=== PATIENT | female | born 1925 | race Caucasian/White ===

== ENCOUNTER 2016-09-03 02:30 | Inpatient (IN) | payer OTHER ==
[2016-09-03 02:43] VITALS: BMI 20.7
[2016-09-03] MEDS ORDERED: ALBUTEROL SO4 2.5/IPRATROPIUM 0.5 INH SOL 3 ML VIAL.NEB. NEB ONE (02:47)
[2016-09-03] MEDS ORDERED: methylPREDNISolone NA SUCC 125 MG/2 ML VIAL ONE (02:47)
--- NOTE | 2016-09-03 03:01 | PDOC ---
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 The patient reports slight shortness of breath with intermittent productive cough. Denies sick contact. Denies chest pain or palpitations. Denies fever, chills, or diaphoresis. Denies nausea, vomiting, diarrhea. Denies any other symptoms. 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 ) CVA: No COPD: Yes CHF: No Dementia: No Diabetes: No GI Disorders: No Disorders: No HTN: No Hypercholesterolemia: No Liver Disease: No Suicide Attempt (Hx): No Seizures: No Thyroid Disease: No - Surgical History Abdominal Surgery: Yes (hernia repair) Appendectomy: No Cardiac Surgery: No Cholecystectomy: No Lung Surgery: No Neurologic Surgery: No Orthopedic Surgery: Yes (left hip sx x5, left arm sx x1, tonsils as child) - Immunization History Immunization Up to Date: Yes - Psycho/Social/Smoking Cessation Hx Anxiety: No Suicidal Ideation: No Smoking Status: No Smoking History: Never smoked Have you smoked in the past 12 months: No Number of Cigarettes Smoked Daily: 0 Hx Alcohol Use: No Drug/Substance Use Hx: No Substance Use Type: None Hx Substance Use Treatment: No <Nigel Smart - Last Filed: 09/05/16 19:29> - Past Medical History Allergies/Adverse Reactions: Allergies Allergy/AdvReac Type Severity Reaction Status Date / Time amoxicillin [Amoxicillin] Allergy Mild Rash Verified 09/03/16 02:43 mold Allergy Verified 09/03/16 02:43 MSG AdvReac Intermediate Uncoded 09/03/16 02:43 Home Medications: Ambulatory Orders Albuterol Sulfate Inhaler - [Ventolin HFA Inhaler -] 2 inh PO Q4H 12/02/15 Aspirin [ASA -] 81 mg PO DAILY 12/02/15 Bimatoprost [Lumigan] 1 drop OD HS 12/02/15 Folic Acid 1 mg PO DAILY 12/02/15 Montelukast Na [Singulair -] 10 mg PO HS 12/02/15 Tiotropium [place] [Spiriva] 1 inh IH DAILY 12/02/15 Prednisone [Deltasone -] 10 mg PO DAILY 07/16/16 Calcium Carbonate [Calcium] 1,000 mg PO DAILY 09/03/16 Cholecalciferol (Vitamin D3) [Vitamin D3 -] 1,000 unit PO DAILY 09/03/16 Mometasone Furoate 2 sprays NS DAILY 09/03/16 Review of Systems - Review of Systems Able to Perform ROS?: Yes Comments:: 09/03/16 03:31 CONSTITUTIONAL: Absent: fever, no chills, no fatigue EYES: Absent: visual changes ENT: Absent: ear pain, no sore throat CARDIOVASCULAR: Absent: chest pain, no palpitations RESPIRATORY: + cough, SOB GI: Absent: abdominal pain, no nausea, no vomiting, no constipation, no diarrhea GENITOURINARY: Absent: dysuria, no frequency, no hematuria MUSKULOSKELETAL: Absent: back pain, no arthralgia, no myalgia SKIN: Absent: rash NEURO: Absent: headache All Other Systems: Reviewed and Negative <Riddhi Esparza - Last Filed: 09/03/16 04:11> *Physical Exam - Vital Signs Last Vital Signs Temp Pulse Resp BP Pulse Ox 97.9 F 90 20 171/71 99 09/03/16 02:40 09/03/16 02:40 09/03/16 02:40 09/03/16 02:40 09/03/16 02:40 - Physical Exam Comments: 09/03/16 03:31 GENERAL: Well-appearing, well-nourished. No apparent distress. HEENT: Normocephalic, atraumatic. PERRL, EOM intact. CARDIOVASCULAR: Normal S1, S2. Regular rate and rhythm. PULMONARY: + scattered wheezing throughout both lung sullivan, no conversation dyspnea. ABDOMEN: Soft, non-distended, non-tender. EXTREMITIES: Normal ROM in all four extremities. No gross deformities. SKIN: Warm, dry. No rash NEUROLOGICAL: No focal neurological deficits. <Riddhi Esparza - Last Filed: 09/03/16 04:11> - Vital Signs Last Vital Signs Temp Pulse Resp BP Pulse Ox 97.9 F 90 20 171/71 99 09/03/16 02:40 09/03/16 02:40 09/03/16 02:40 09/03/16 02:40 09/03/16 02:40 <Nigel Smart - Last Filed: 09/05/16 19:29> Heart Score/ECG Review #1 09/03/16 04:11 Reviewed and Interpreted by Dr. Smart: Impression: Sinus rhythm with marked sinus arrhythmia Possible left atrial enlargement Left axis deviation Left ventricular hypertrophy with QRS widening and repolarization abnormality Inferior infarct, age undetermined Vent rate 80 bpm SD interval 182 ms QRS duration 162 ms <Riddhi Esparza - Last Filed: 09/03/16 04:11> ED Treatment Course - LABORATORY CBC & Chemistry Diagram: 09/04/16 05:35 09/04/16 05:35 <Nigel Smart - Last Filed: 09/05/16 19:29> Medical Decision Making - Medical Decision Making 09/05/16 19:29 Dr. Smart: The scribe's documentation has been prepared under my direction and personally reviewed by me in its entirery. I confirm that the note above accurately reflects all work, treatment, procedures, and medical decision making performed by me. <Nigel Smart - Last Filed: 09/05/16 19:29> *DC/Admit/Observation/Transfer - Attestations Scribe Attestion: 09/03/16 03:31 Documentation prepared by Riddhi Esparza, acting as associate medical director for Nigel Smart MD <Riddhi Esparza - Last Filed: 09/03/16 04:11> <Nigel Smart - Last Filed: 09/05/16 19:29> Diagnosis at time of Disposition: Acute respiratory distress COPD (chronic obstructive pulmonary disease) Qualifiers: COPD type: COPD with acute exacerbation Qualified Code(s): J44.1 - Chronic obstructive pulmonary disease with (acute) exacerbation - Discharge Dispostion Condition at time of disposition: Stable - Referrals
[2016-09-03 06:11] LABS: BASOPHIL 0.4 % (0-2.0); EOSINOPHIL 0.1 % (0-4.5); MCH 28.9 pg (25.7-33.7); MEAN CELL VOLUME 90.3 fl (80-96); MEAN PLT VOLUME 9.8 fl (7.5-11.1); NEUTROPHILS 96.3 % (42.8-82.8); PLATELET COUNT 150 K/MM3 (134-434); RDW 14.1 % (11.6-15.6); WHITE BLOOD COUNT 6.7 K/mm3 (4.0-10.0)
[2016-09-03 06:26] LABS: INR 1.12 (0.82-1.09); PROTHROMBIN TIME (PATIENT) 12.3 SEC (9.98-11.88)
[2016-09-03 06:39] LABS: ALBUMIN 3.3 g/dl (3.4-5.0); BILIRUBIN,TOTAL 0.3 mg/dL (0.2-1.0); CALCIUM 8.7 mg/dL (8.5-10.1); CREATININE 0.9 mg/dL (0.55-1.02); TOT PROT 5.6 g/dl (6.4-8.2)
[2016-09-03 06:41] LABS: TROPONIN I 0.05 ng/ml (0.00-0.05)
[2016-09-03] MEDS ORDERED: LEVOFLOXACIN 500 MG IVPB 100 ML IVPB ONE ×2 (07:30→07:42)
--- NOTE | 2016-09-03 07:32 | PDOC ---
*Physical Exam - Vital Signs Last Vital Signs Temp Pulse Resp BP Pulse Ox 97.9 F 94 H 16 133/76 96 09/03/16 02:40 09/03/16 06:26 09/03/16 06:26 09/03/16 06:26 09/03/16 06:26 <Wilfrid Khan - Last Filed: 09/03/16 09:11> - Vital Signs Last Vital Signs Temp Pulse Resp BP Pulse Ox 97.9 F 94 H 16 133/76 96 09/03/16 02:40 09/03/16 06:26 09/03/16 06:26 09/03/16 06:26 09/03/16 06:26 <Shayla Doherty - Last Filed: 09/03/16 09:16> ED Treatment Course - LABORATORY CBC & Chemistry Diagram: 09/03/16 05:54 09/03/16 05:54 - ADDITIONAL ORDERS Additional order review: Laboratory Results 09/03/16 09/03/16 05:54 05:54 INR 1.12 Sodium 144 Potassium 3.5 Chloride 106 Carbon Dioxide 28 Anion Gap 10 BUN 19 H Creatinine 0.9 Creat Clearance w eGFR 58.95 Random Glucose 164 H D Calcium 8.7 Total Bilirubin 0.3 D AST 17 D ALT 15 Alkaline Phosphatase 155 H D Creatine Kinase 40 Troponin I 0.05 Total Protein 5.6 L Albumin 3.3 L D 09/03/16 05:54 RBC 4.43 MCV 90.3 MCHC 32.0 RDW 14.1 MPV 9.8 Neutrophils % 96.3 H Lymphocytes % 1.1 L D Monocytes % 2.1 L Eosinophils % 0.1 D Basophils % 0.4 <Wilfrid Khan - Last Filed: 09/03/16 09:11> - LABORATORY CBC & Chemistry Diagram: 09/03/16 05:54 09/03/16 05:54 - ADDITIONAL ORDERS Additional order review: Laboratory Results 09/03/16 09/03/16 05:54 05:54 INR 1.12 Sodium 144 Potassium 3.5 Chloride 106 Carbon Dioxide 28 Anion Gap 10 BUN 19 H Creatinine 0.9 Creat Clearance w eGFR 58.95 Random Glucose 164 H D Calcium 8.7 Total Bilirubin 0.3 D AST 17 D ALT 15 Alkaline Phosphatase 155 H D Creatine Kinase 40 Troponin I 0.05 Total Protein 5.6 L Albumin 3.3 L D 09/03/16 05:54 RBC 4.43 MCV 90.3 MCHC 32.0 RDW 14.1 MPV 9.8 Neutrophils % 96.3 H Lymphocytes % 1.1 L D Monocytes % 2.1 L Eosinophils % 0.1 D Basophils % 0.4 <Shayla Doherty - Last Filed: 09/03/16 09:16> Medical Decision Making - Medical Decision Making 09/03/16 07:30 Received signout on this 89-year-old female with asthma/COPD exacerbation who presented with respiratory distress, improved significantly after nebulizers, workup revealed no leukocytosis but left shift, negative troponin, plan was to admit to Dr. Cobb for monitoring of respiratory status. On my review, patient seated comfortably in stretcher, her vital signs are within normal limits, slightly tachypneic. She speaking full sentences, does have coarse breath sounds, right worse than left. Wheezing minimal with good air movement. On my review of the chest x-ray, there appeared to be new infiltrates, particularly on the right, when compared to 2 months ago. Will obtain blood cultures, treat with antibiotics, and proceed with admission. Dr. Springer, covering Dr. Cobb, paged. 09/03/16 09:12 Accepted for inpatient med/surg by Dr. Springer. <Wilfrid Khan - Last Filed: 09/03/16 09:11> - Medical Decision Making 09/03/16 07:[address] Simon Cobb regarding admission at [phone] at 7: 29. Awaiting call back from covering physician Silvina Springer. 09/03/16 08:23 Second call to [phone]. Awaiting call back. 09/03/16 09:16 Received call back from Dr. Springer who agreed to admission. <Shayla Doherty - Last Filed: 09/03/16 09:16> *DC/Admit/Observation/Transfer - Discharge Dispostion Admit: Yes <Wilfrid Khan - Last Filed: 09/03/16 09:11> - Attestations Scribe Attestion: 09/03/16 07:38 Documentation prepared by Shayla Doherty, acting as nuclear medicine medical director for Wilfrid Khan MD. <Shayla Doherty - Last Filed: 09/03/16 09:16> Diagnosis at time of Disposition: Acute respiratory distress COPD (chronic obstructive pulmonary disease) Qualifiers: COPD type: unspecified COPD Qualified Code(s): J44.9 - Chronic obstructive pulmonary disease, unspecified - Discharge Dispostion Condition at time of disposition: Fair - Referrals Referrals: Simon Cobb MD [Primary Care Provider] - - Patient Instructions - Post Discharge Activity
[2016-09-03] MEDS ORDERED: ACETAMINOPHEN 325 MG TABLET (FP) PO PRN (09:48)
[2016-09-03] MEDS ORDERED: ALBUTEROL SO4 2.5/IPRATROPIUM 0.5 INH SOL 3 ML VIAL.NEB. NEB PRN (09:48)
--- NOTE | 2016-09-03 10:45 | HP ---
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 The patient reports slight shortness of breath with intermittent productive cough. Denies sick contact. Denies chest pain or palpitations. Denies fever, chills, or diaphoresis. Denies nausea, vomiting, diarrhea. Denies any other symptoms. 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) Cardiovascular: Yes: HTN Pulmonary: Yes: COPD Gastrointestinal: Yes: Gastritis, Other (IRON DEF ANEMIA) Heme/Onc: Yes: Anemia - Smoking History Smoking history: Never smoked Have you smoked in the past 12 months: No Aproximately how many cigarettes per day: 0 - Alcohol/Substance Use Hx Alcohol Use: No Home Medications - Allergies Allergies/Adverse Reactions: Allergies Allergy/AdvReac Type Severity Reaction Status Date / Time amoxicillin [Amoxicillin] Allergy Mild Rash Verified 09/03/16 02:43 mold Allergy Verified 09/03/16 02:43 MSG AdvReac Intermediate Uncoded 09/03/16 02:43 - Home Medications Home Medications: Ambulatory Orders Albuterol Sulfate Inhaler - [Ventolin HFA Inhaler -] 2 inh PO Q4H 12/02/15 Aspirin [ASA -] 81 mg PO DAILY 12/02/15 Bimatoprost [Lumigan] 1 drop OD HS 12/02/15 Folic Acid 1 mg PO DAILY 12/02/15 Montelukast Na [Singulair -] 10 mg PO HS 12/02/15 Tiotropium [place] [Spiriva] 1 inh IH DAILY 12/02/15 Prednisone [Deltasone -] 10 mg PO DAILY 07/16/16 Calcium Carbonate [Calcium] 1,000 mg PO DAILY 09/03/16 Cholecalciferol (Vitamin D3) [Vitamin D3 -] 1,000 unit PO DAILY 09/03/16 Mometasone Furoate 2 sprays NS DAILY 09/03/16 Review of Systems - Review of Systems Constitutional: denies: Chills, Fever, Lethargy, Loss of Appetite, Weakness Respiratory: reports: Cough, SOB, Wheezing. denies: Exercise Intolerance, Orthopnea, PND, SOB on Exertion Physical Examination Vital Signs: Vital Signs Temperature 97.9 F 09/03/16 02:40 Pulse Rate 85 09/03/16 08:04 Respiratory Rate 18 09/03/16 08:04 Blood Pressure 137/75 09/03/16 08:04 O2 Sat by Pulse Oximetry (%) 97 09/03/16 08:04 Constitutional: Yes: No Distress, Calm Cardiovascular: Yes: Regular Rate and Rhythm Respiratory: Yes: Diminished, Rhonchi Gastrointestinal: Yes: Normal Bowel Sounds, Soft. No: Distention, Tenderness Edema: No Psychiatric: Yes: Alert, Oriented Labs: Laboratory Last Values WBC 6.7 K/mm3 (4.0-10.0) 09/03/16 05:54 RBC 4.43 M/mm3 (3.60-5.2) 09/03/16 05:54 Hgb 12.8 GM/dL (10.7-15.3) 09/03/16 05:54 Hct 40.0 % (32.4-45.2) 09/03/16 05:54 MCV 90.3 fl (80-96) 09/03/16 05:54 MCHC 32.0 g/dl (32.0-36.0) 09/03/16 05:54 RDW 14.1 % (11.6-15.6) 09/03/16 05:54 Plt Count 150 K/MM3 (134-434) D 09/03/16 05:54 MPV 9.8 fl (7.5-11.1) 09/03/16 05:54 Neutrophils % 96.3 % (42.8-82.8) H 09/03/16 05:54 Lymphocytes % 1.1 % (8-40) L D 09/03/16 05:54 Monocytes % 2.1 % (3.8-10.2) L 09/03/16 05:54 Eosinophils % 0.1 % (0-4.5) D 09/03/16 05:54 Basophils % 0.4 % (0-2.0) 09/03/16 05:54 INR 1.12 (0.82-1.09) 09/03/16 05:54 Sodium 144 mmol/L (136-145) 09/03/16 05:54 Potassium 3.5 mmol/L (3.5-5.1) 09/03/16 05:54 Chloride 106 mmol/L (98-107) 09/03/16 05:54 Carbon Dioxide 28 mmol/L (21-32) 09/03/16 05:54 Anion Gap 10 (8-16) 09/03/16 05:54 BUN 19 mg/dL (7-18) H 09/03/16 05:54 Creatinine 0.9 mg/dL (0.55-1.02) 09/03/16 05:54 Creat Clearance w eGFR 58.95 (>60) 09/03/16 05:54 Random Glucose 164 mg/dL (74-106) H D 09/03/16 05:54 Calcium 8.7 mg/dL (8.5-10.1) 09/03/16 05:54 Total Bilirubin 0.3 mg/dL (0.2-1.0) D 09/03/16 05:54 AST 17 U/L (15-37) D 09/03/16 05:54 ALT 15 U/L (12-78) 09/03/16 05:54 Alkaline Phosphatase 155 U/L (45-117) H D 09/03/16 05:54 Creatine Kinase 40 IU/L (26-192) 09/03/16 05:54 Troponin I 0.05 ng/ml (0.00-0.05) 09/03/16 05:54 Total Protein 5.6 g/dl (6.4-8.2) L 09/03/16 05:54 Albumin 3.3 g/dl (3.4-5.0) L D 09/03/16 05:54 Imaging - Results Chest X-ray: Image Reviewed (congestion) EKG: Image Reviewed (paced) Problem List - Problems (1) Acute respiratory distress Code(s): J80 - ACUTE RESPIRATORY DISTRESS SYNDROME (2) COPD (chronic obstructive pulmonary disease) Code(s): J44.9 - CHRONIC OBSTRUCTIVE PULMONARY DISEASE, UNSPECIFIED Qualifiers : COPD type: COPD with acute exacerbation Qualified Code(s): J44.1 - Chronic obstructive pulmonary disease with (acute) exacerbation (3) HTN (hypertension) Code(s): I10 - ESSENTIAL (PRIMARY) HYPERTENSION Qualifiers: Hypertension type: essential hypertension Qualified Code(s): I10 - Essential (primary) hypertension (4) Diastolic CHF Code(s): I50.30 - UNSPECIFIED DIASTOLIC (CONGESTIVE) HEART FAILURE Assessment/Plan PLAN -- Start iv antibiotics and Solumedrol -- Protonix for GI prophylaxis -- PO Lasix -- will use it cautiously- monitor BMP -- OOB -- DVT prophylaxis-- lovenox -- Pulmonary eval -- nebs and O2
--- NOTE | 2016-09-03 13:56 | EKG ---
Test Reason : Blood Pressure : / mmHG Vent. Rate : 080 BPM Atrial Rate : 080 BPM P-R Int : 182 ms QRS Dur : 162 ms QT Int : 426 ms P-R-T Axes : 069 -40 106 degrees QTc Int : 491 ms SINUS RHYTHM WITH MARKED SINUS ARRHYTHMIA ELECTRONIC VENTRICULAR PACEMAKER POSSIBLE LEFT ATRIAL ENLARGEMENT ABNORMAL ECG Confirmed by MD RAMONA, MIAN ([id number]) on 09/03/2016 1:56:17 PM Referred By: Overread By: MIAN GREENE MD
[2016-09-03] MEDS: methylPREDNISolone NA SUCC 40 MG/1 ML VIAL IVPB SCH (18:00)
--- NOTE | 2016-09-03 18:58 | PN ---
Progress Note (short form) - Note Progress Note: Pulmonary Pt has a long history of bronchial asthma. She also has an ASD (she has had little cardiac dysfunction over the years) and a prior history of Allergic Bronchopulmonary Aspergillosis (ABPA). In 2007 ABPA caused lung atelectasis and she required bronchoscopy to r/o neoplasm. She responded well to steroids. In the last several years she has required Prednisone 10 mg daily to control her respiratory symptoms. CXR reviewed:there are increased central markings present compared to CXR ; these could represent congestive changes or early changes of ABPA. In any event, systemic steroids would address ABPA and diuretic PRN would help any CHF. Full note to follow.
[2016-09-03] MEDS ORDERED: ALBUTEROL SO4 0.083% IH SOL 2.5 MG/3 ML VIAL.NEB. NEB PRN (19:03)
[2016-09-03] MEDS: guaiFENesin 200 MG/10 ML 10 ML UNIT-DOSE CUPS PO PRN (22:03)
[2016-09-03] MEDS: ALBUTEROL SO4 6.7 GM HFA INHALER IH PRN (22:03)
[2016-09-03] MEDS: HEPARIN NA (PORCINE) 5,000 UNITS/ML 1ML VIAL SQ SCH (22:03)
[2016-09-03] MEDS: FUROSEMIDE 40 MG TABLET (FP) PO SCH (22:03)
[2016-09-04] MEDS: methylPREDNISolone NA SUCC 40 MG/1 ML VIAL IVPB SCH ×3 (01:08→18:03)
[2016-09-04 06:41] LABS: BASOPHIL 0.3 % (0-2.0); MCH 30.1 pg (25.7-33.7); MEAN CELL VOLUME 91.2 fl (80-96); MEAN PLT VOLUME 9.7 fl (7.5-11.1); NEUTROPHILS 93.4 % (42.8-82.8); PLATELET COUNT 126 K/MM3 (134-434); RDW 14.1 % (11.6-15.6); WHITE BLOOD COUNT 5.6 K/mm3 (4.0-10.0)
[2016-09-04 07:49] LABS: ALBUMIN 3.2 g/dl (3.4-5.0); BILIRUBIN,TOTAL 0.3 mg/dL (0.2-1.0); CALCIUM 8.1 mg/dL (8.5-10.1); TOT PROT 5.3 g/dl (6.4-8.2)
--- NOTE | 2016-09-04 10:28 | PN ---
Progress Note, Physician Chief Complaint: feels better but she is coughing - Current Medication List Current Medications: Active Medications Acetaminophen (Tylenol -) 650 mg PO Q6H PRN PRN Reason: FEVER OR PAIN Albuterol Sulfate (Ventolin 0.083% Nebulizer Soln -) 1 amp NEB Q6H PRN PRN Reason: SHORT OF BREATH/WHEEZING Albuterol Sulfate (Ventolin Hfa Inhaler -) 2 puff IH Q4H PRN PRN Reason: SHORTNESS OF BREATH Last Admin: 09/03/16 22:03 Dose: 2 puff Furosemide (Lasix -) 40 mg PO DAILY BRETT Last Admin: 09/03/16 22:03 Dose: 40 mg Guaifenesin (Robitussin -) 10 ml PO Q6H PRN PRN Reason: COUGH Last Admin: 09/03/16 22:03 Dose: 10 ml Heparin Sodium (Porcine) (Heparin -) 5,000 unit SQ BID BRETT Last Admin: 09/03/16 22:03 Dose: 5,000 unit Levofloxacin (Levaquin 250 Mg Premixed Ivpb -) 50 mls @ 50 mls/hr IVPB DAILY [facility] Methylprednisolone Sodium Succinate (Solu-Medrol -) 60 mg IVPB Q8H-IV BRETT Last Admin: 09/04/16 01:08 Dose: 60 mg Pantoprazole Sodium (Protonix -) 40 mg PO DAILY [facility] - Objective Vital Signs: Vital Signs Temperature 98 F 09/04/16 06:40 Pulse Rate 88 09/04/16 06:40 Respiratory Rate 20 09/04/16 06:40 Blood Pressure 157/90 09/04/16 06:40 O2 Sat by Pulse Oximetry (%) 96 09/03/16 10:22 Constitutional: Yes: No Distress Cardiovascular: Yes: Regular Rate and Rhythm Respiratory: Yes: Diminished, Rhonchi Gastrointestinal: Yes: Normal Bowel Sounds, Soft. No: Distention, Tenderness Edema: No Labs: CBC, BMP 09/04/16 05:35 09/04/16 05:35 INR, PTT INR 1.12 (0.82-1.09) 09/03/16 05:54 Problem List - Problems (1) Acute respiratory distress Code(s): J80 - ACUTE RESPIRATORY DISTRESS SYNDROME (2) COPD (chronic obstructive pulmonary disease) Code(s): J44.9 - CHRONIC OBSTRUCTIVE PULMONARY DISEASE, UNSPECIFIED Qualifiers : COPD type: COPD with acute exacerbation Qualified Code(s): J44.1 - Chronic obstructive pulmonary disease with (acute) exacerbation (3) HTN (hypertension) Code(s): I10 - ESSENTIAL (PRIMARY) HYPERTENSION Qualifiers: Hypertension type: essential hypertension Qualified Code(s): I10 - Essential (primary) hypertension (4) Diastolic CHF Code(s): I50.30 - UNSPECIFIED DIASTOLIC (CONGESTIVE) HEART FAILURE Assessment/Plan PLAN -- iv antibiotics and Solumedrol -- Protonix for GI prophylaxis -- PO Lasix -- will use it cautiously- monitor BMP -- OOB -- DVT prophylaxis-- heparin -- Pulmonary eval -- nebs and O2
[2016-09-04] MEDS: ALBUTEROL SO4 6.7 GM HFA INHALER IH PRN ×2 (11:01→22:06)
[2016-09-04] MEDS: guaiFENesin 200 MG/10 ML 10 ML UNIT-DOSE CUPS PO PRN (11:01)
[2016-09-04] MEDS: LEVOFLOXACIN 250 MG IVPB 50 ML IVPB SCH (11:02)
[2016-09-04] MEDS: HEPARIN NA (PORCINE) 5,000 UNITS/ML 1ML VIAL SQ SCH ×2 (11:02→22:02)
[2016-09-04] MEDS: FUROSEMIDE 40 MG TABLET (FP) PO SCH (11:03)
[2016-09-04] MEDS: PANTOPRAZOLE 40 MG TABLET (FP) PO SCH (11:03)
--- NOTE | 2016-09-04 16:12 | CONSULT ---
Consult Consult Specialty:: Pulmonary Reason for Consultation:: dyspnea - History of Present Illness Chief Complaint: Shortness of breath History of Present Illness: 89 year old woman with a life-long history of bronchial asthma developed acute onset of dyspnea and severe wheezing early in the morning while lying in bed. She denies chest pain, palpitations or syncope. There is no history of tuberculosis, hemoptysis, or recent sputum production. PMH: significant for an ASD (she has had little cardiac dysfunction over the years) and a prior history of Allergic Bronchopulmonary Aspergillosis (ABPA). In 2007 ABPA caused lung atelectasis and she required bronchoscopy to r/o neoplasm. She responded well to steroids. In the last several years she has required Prednisone 10 mg daily to control her respiratory symptoms. 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) Cardio/Vascular: Yes: HTN Pulmonary: Yes: COPD Gastrointestinal: Yes: Gastritis, Other (IRON DEF ANEMIA) Additional Medical History: IRON DEF ANEMIA - Alcohol/Substance Use Hx Alcohol Use: No - Smoking History Smoking history: Never smoked Have you smoked in the past 12 months: No Aproximately how many cigarettes per day: 0 Home Medications - Allergies Allergies/Adverse Reactions: Allergies Allergy/AdvReac Type Severity Reaction Status Date / Time amoxicillin [Amoxicillin] Allergy Mild Rash Verified 09/03/16 02:43 mold Allergy Verified 09/03/16 02:43 MSG AdvReac Intermediate Uncoded 09/03/16 02:43 - Home Medications Home Medications: Ambulatory Orders Albuterol Sulfate Inhaler - [Ventolin HFA Inhaler -] 2 inh PO Q4H 12/02/15 Aspirin [ASA -] 81 mg PO DAILY 12/02/15 Bimatoprost [[place]um[place]] 1 drop OD HS 12/02/15 Folic Acid 1 mg PO DAILY 12/02/15 Montelukast Na [Singulair -] 10 mg PO HS 12/02/15 Tiotropium [place] [Spiriva] 1 inh IH DAILY 12/02/15 Prednisone [Deltasone -] 10 mg PO DAILY 07/16/16 Calcium Carbonate [Calcium] 1,000 mg PO DAILY 09/03/16 Cholecalciferol (Vitamin D3) [Vitamin D3 -] 1,000 unit PO DAILY 09/03/16 Mometasone Furoate 2 sprays NS DAILY 09/03/16 Review of Systems - Review of Systems Constitutional: denies: Chills, Fever Cardiovascular: reports: Shortness of Breath. denies: Chest Pain, Edema, Palpitations Respiratory: reports: Cough, Orthopnea, SOB, Wheezing. denies: Hemoptysis Gastrointestinal: denies: Abdominal Pain, Rectal Bleeding, Vomiting Blood Neurological: reports: No Symptoms Physical Exam Vital Sings: Vital Signs Temperature 97.8 F 09/04/16 15:21 Pulse Rate 100 H 09/04/16 15:21 Respiratory Rate 20 09/04/16 15:21 Blood Pressure 158/80 09/04/16 10:56 O2 Sat by Pulse Oximetry (%) 96 09/03/16 10:22 Constitutional: Yes: No Distress (OOB in chair) Eyes: No: Sclera Icterus HENT: Yes: Atraumatic, Normocephalic Neck: Yes: Supple, Trachea Midline Cardiovascular: Yes: Regular Rate and Rhythm. No: JVD Respiratory: Yes: CTA Bilaterally ...Clubbing: No Gastrointestinal: Yes: Soft. No: Hepatomegaly, Splenomegaly, Tenderness Extremities: No: Calf Tenderness Edema: No Neurological: Yes: Alert, Oriented Labs: CBC, BMP 09/04/16 05:35 09/04/16 05:35 Imaging - Results Chest X-ray: Report Reviewed, Image Reviewed (increased central markings present compared to CXR 07/20/16) Problem List - Problems (1) Acute respiratory distress Code(s): J80 - ACUTE RESPIRATORY DISTRESS SYNDROME (2) COPD (chronic obstructive pulmonary disease) Code(s): J44.9 - CHRONIC OBSTRUCTIVE PULMONARY DISEASE, UNSPECIFIED Qualifiers : COPD type: COPD with acute exacerbation Qualified Code(s): J44.1 - Chronic obstructive pulmonary disease with (acute) exacerbation (3) Diastolic CHF Code(s): I50.30 - UNSPECIFIED DIASTOLIC (CONGESTIVE) HEART FAILURE Assessment/Plan 89 year old lady with acute respiratory distress secondary to status asthmaticus. Pt may have had mild diastolic heart failure, in addition, contributing to her initial distress. Pt is improved post tx with steroids, bronchodilators, diuretic and antibiotic. Suggest: Inhaled bronchodilators Steroids with tapering-pt has been on a maintenance dose of 10 mg per day. O2 to maintain SaO2>90 Diuretic Repeat CXR PA aand Lateral Thank you for referring this patient for consultation.
[2016-09-04] MEDS: FLUTICASONE PROP 0.05% 16 GM NASAL SPRAY NS SCH (18:04)
[2016-09-04] MEDS ORDERED: PT OWN MED DRAWER 7, Y5N ONE ×2 (20:00→21:57)
[2016-09-04] MEDS: MONTELUKAST NA 10 MG TABLET PO SCH (22:02)
[2016-09-04] MEDS: LATANOPROST 0.005% OPHTH SOLN 2.5ML BOTTLE OD SCH (22:03)
[2016-09-05] MEDS: methylPREDNISolone NA SUCC 40 MG/1 ML VIAL IVPB SCH ×3 (02:40→17:03)
[2016-09-05] MEDS: FUROSEMIDE 40 MG TABLET (FP) PO SCH (11:09)
[2016-09-05] MEDS: PANTOPRAZOLE 40 MG TABLET (FP) PO SCH (11:09)
[2016-09-05] MEDS: HEPARIN NA (PORCINE) 5,000 UNITS/ML 1ML VIAL SQ SCH ×2 (11:09→22:01)
[2016-09-05] MEDS: LEVOFLOXACIN 250 MG IVPB 50 ML IVPB SCH (11:27)
--- NOTE | 2016-09-05 12:10 | PN ---
Progress Note, Physician Chief Complaint: feels better denies SOB - Current Medication List Current Medications: Active Medications Acetaminophen (Tylenol -) 650 mg PO Q6H PRN PRN Reason: FEVER OR PAIN Albuterol Sulfate (Ventolin 0.083% Nebulizer Soln -) 1 amp NEB Q6H PRN PRN Reason: SHORT OF BREATH/WHEEZING Albuterol Sulfate (Ventolin Hfa Inhaler -) 2 puff IH Q4H PRN PRN Reason: SHORTNESS OF BREATH Last Admin: 09/04/16 22:06 Dose: 2 puff Fluticasone Propionate (Flonase -) 2 spray NS DAILY [facility] Last Admin: 09/04/16 18:04 Dose: Not Given Furosemide (Lasix -) 40 mg PO DAILY [facility] Last Admin: 09/05/16 11:09 Dose: 40 mg Guaifenesin (Robitussin -) 10 ml PO Q6H PRN PRN Reason: COUGH Last Admin: 09/04/16 11:01 Dose: 10 ml Heparin Sodium (Porcine) (Heparin -) 5,000 unit SQ BID [facility] Last Admin: 09/05/16 11:09 Dose: 5,000 unit Levofloxacin (Levaquin 250 Mg Premixed Ivpb -) 50 mls @ 50 mls/hr IVPB DAILY [facility] Last Admin: 09/05/16 11:27 Dose: 50 mls/hr Latanoprost (Xalatan 0.005% Eye Drops -) 1 drop OD HS [facility] Last Admin: 09/04/16 22:03 Dose: 1 drop Methylprednisolone Sodium Succinate (Solu-Medrol -) 60 mg IVPB Q8H-IV [facility] Last Admin: 09/05/16 10:45 Dose: 60 mg Montelukast Sodium (Singulair -) 10 mg PO HS [facility] Last Admin: 09/04/16 22:02 Dose: 10 mg Pantoprazole Sodium (Protonix -) 40 mg PO DAILY [facility] Last Admin: 09/05/16 11:09 Dose: 40 mg - Objective Vital Signs: Vital Signs Temperature 97.2 F L 09/05/16 06:20 Pulse Rate 85 09/05/16 06:20 Respiratory Rate 18 09/05/16 06:20 Blood Pressure 142/75 09/05/16 06:20 O2 Sat by Pulse Oximetry (%) 96 09/04/16 21:00 Constitutional: Yes: No Distress, Calm Cardiovascular: Yes: Regular Rate and Rhythm Respiratory: Yes: Diminished, Rhonchi Gastrointestinal: Yes: Normal Bowel Sounds, Soft. No: Distention, Tenderness Edema: No Labs: CBC, BMP 09/04/16 05:35 09/04/16 05:35 INR, PTT INR 1.12 (0.82-1.09) 09/03/16 05:54 Problem List - Problems (1) Acute respiratory distress Code(s): J80 - ACUTE RESPIRATORY DISTRESS SYNDROME (2) COPD (chronic obstructive pulmonary disease) Code(s): J44.9 - CHRONIC OBSTRUCTIVE PULMONARY DISEASE, UNSPECIFIED Qualifiers : COPD type: COPD with acute exacerbation Qualified Code(s): J44.1 - Chronic obstructive pulmonary disease with (acute) exacerbation (3) HTN (hypertension) Code(s): I10 - ESSENTIAL (PRIMARY) HYPERTENSION Qualifiers: Hypertension type: essential hypertension Qualified Code(s): I10 - Essential (primary) hypertension (4) Diastolic CHF Code(s): I50.30 - UNSPECIFIED DIASTOLIC (CONGESTIVE) HEART FAILURE Assessment/Plan PLAN -- iv antibiotics and Solumedrol-- taper today -- Protonix for GI prophylaxis -- decrease PO Lasix -- OOB -- DVT prophylaxis-- heparin -- nebs and O2
[2016-09-05] MEDS: FLUTICASONE PROP 0.05% 16 GM NASAL SPRAY NS SCH (12:48)
[2016-09-05] MEDS ORDERED: PT OWN MED DRAWER 7, Y5N ONE ×2 (21:57→21:59)
[2016-09-05] MEDS: ACLIDINIUM BROMIDE 400 MCG/INH AERO.POWD IH SCH (22:01)
[2016-09-05] MEDS: MONTELUKAST NA 10 MG TABLET PO SCH (22:01)
[2016-09-05] MEDS: LATANOPROST 0.005% OPHTH SOLN 2.5ML BOTTLE OD SCH (22:02)
[2016-09-05] MEDS: guaiFENesin 200 MG/10 ML 10 ML UNIT-DOSE CUPS PO PRN (22:03)
[2016-09-06] MEDS: methylPREDNISolone NA SUCC 40 MG/1 ML VIAL IVPB SCH ×3 (01:18→21:41)
[2016-09-06] MEDS: amLODIPine BESYLATE 5 MG TABLET (FP) PO SCH (09:25)
[2016-09-06] MEDS: FUROSEMIDE 20 MG TABLET (FP) PO SCH (09:25)
[2016-09-06] MEDS: PANTOPRAZOLE 40 MG TABLET (FP) PO SCH (09:25)
[2016-09-06] MEDS: HEPARIN NA (PORCINE) 5,000 UNITS/ML 1ML VIAL SQ SCH ×2 (09:41→21:41)
[2016-09-06] MEDS ORDERED: PT OWN MED DRAWER 7, Y5N ONE ×2 (10:38→20:48)
[2016-09-06] MEDS: ACLIDINIUM BROMIDE 400 MCG/INH AERO.POWD IH SCH ×2 (10:38→21:43)
[2016-09-06] MEDS: LEVOFLOXACIN 250 MG IVPB 50 ML IVPB SCH (10:38)
[2016-09-06] MEDS: FLUTICASONE PROP 0.05% 16 GM NASAL SPRAY NS SCH (10:39)
--- NOTE | 2016-09-06 12:22 | PN ---
Progress Note, Physician History of Present Illness: Pt still has dyspnea with exertion and occasional cough-though improved compared to admission - Current Medication List Current Medications: Active Medications Acetaminophen (Tylenol -) 650 mg PO Q6H PRN PRN Reason: FEVER OR PAIN Aclidinium [place] (Tudorza -) 1 puff IH BID [facility] Last Admin: 09/06/16 10:38 Dose: 1 puff Albuterol Sulfate (Ventolin 0.083% Nebulizer Soln -) 1 amp NEB Q6H PRN PRN Reason: SHORT OF BREATH/WHEEZING Albuterol Sulfate (Ventolin Hfa Inhaler -) 2 puff IH Q4H PRN PRN Reason: SHORTNESS OF BREATH Last Admin: 09/04/16 22:06 Dose: 2 puff Amlodipine Besylate (Norvasc -) 5 mg PO DAILY [facility] Last Admin: 09/06/16 09:25 Dose: 5 mg Fluticasone Propionate (Flonase -) 2 spray NS DAILY [facility] Last Admin: 09/06/16 10:39 Dose: 2 spray Furosemide (Lasix -) 20 mg PO DAILY [facility] Last Admin: 09/06/16 09:25 Dose: 20 mg Guaifenesin (Robitussin -) 10 ml PO Q6H PRN PRN Reason: COUGH Last Admin: 09/05/16 22:03 Dose: 10 ml Heparin Sodium (Porcine) (Heparin -) 5,000 unit SQ BID [facility] Last Admin: 09/06/16 09:41 Dose: 5,000 unit Levofloxacin (Levaquin 250 Mg Premixed Ivpb -) 50 mls @ 50 mls/hr IVPB DAILY [facility] Last Admin: 09/06/16 10:38 Dose: 50 mls/hr Latanoprost (Xalatan 0.005% Eye Drops -) 1 drop OD HS [facility] Last Admin: 09/05/16 22:02 Dose: 1 drop Methylprednisolone Sodium Succinate (Solu-Medrol -) 40 mg IVPB Q8H-IV [facility] Last Admin: 09/06/16 09:30 Dose: 40 mg Montelukast Sodium (Singulair -) 10 mg PO HS [facility] Last Admin: 09/05/16 22:01 Dose: 10 mg Pantoprazole Sodium (Protonix -) 40 mg PO DAILY [facility] Last Admin: 09/06/16 09:25 Dose: 40 mg - Objective Vital Signs: Vital Signs Temperature 98.3 F 09/06/16 07:00 Pulse Rate 76 09/06/16 07:00 Respiratory Rate 18 09/06/16 07:00 Blood Pressure 186/99 09/06/16 07:00 O2 Sat by Pulse Oximetry (%) 96 09/05/16 20:49 Constitutional: Yes: No Distress Eyes: No: Sclera Icterus HENT: Yes: Atraumatic, Normocephalic Neck: Yes: Supple, Trachea Midline Cardiovascular: Yes: Regular Rate and Rhythm. No: JVD Respiratory: Yes: CTA Bilaterally Gastrointestinal: Yes: Soft. No: Tenderness Extremities: No: Calf Tenderness Edema: No Neurological: Yes: Alert, Oriented Labs: CBC, BMP 09/04/16 05:35 09/04/16 05:35 INR, PTT INR 1.12 (0.82-1.09) 09/03/16 05:54 - ....Imaging Chest X-ray: Report Reviewed, Image Reviewed (improved compared to admission with central markings back to baseline. Left basilar atelectasis) Problem List - Problems (1) Acute respiratory distress Code(s): J80 - ACUTE RESPIRATORY DISTRESS SYNDROME (2) COPD (chronic obstructive pulmonary disease) Code(s): J44.9 - CHRONIC OBSTRUCTIVE PULMONARY DISEASE, UNSPECIFIED Qualifiers : COPD type: COPD with acute exacerbation Qualified Code(s): J44.1 - Chronic obstructive pulmonary disease with (acute) exacerbation (3) Diastolic CHF Code(s): I50.30 - UNSPECIFIED DIASTOLIC (CONGESTIVE) HEART FAILURE Assessment/Plan 89 year old lady with acute exacerbation obstructive airway disease, acute bronchitis and diastolic heart failure: improved but still dyspneic. Suggest: Continue inhaled bronchodilators Steroid taper in progress. O2 to maintain SaO2>90 Levaquin Diuretic .
--- NOTE | 2016-09-06 14:35 | PN ---
Progress Note, Physician Chief Complaint: feels better denies SOB has cough - Current Medication List Current Medications: Active Medications Acetaminophen (Tylenol -) 650 mg PO Q6H PRN PRN Reason: FEVER OR PAIN Aclidinium [place] (Tudorza -) 1 puff IH BID [facility] Last Admin: 09/06/16 10:38 Dose: 1 puff Albuterol Sulfate (Ventolin 0.083% Nebulizer Soln -) 1 amp NEB Q6H PRN PRN Reason: SHORT OF BREATH/WHEEZING Albuterol Sulfate (Ventolin Hfa Inhaler -) 2 puff IH Q4H PRN PRN Reason: SHORTNESS OF BREATH Last Admin: 09/04/16 22:06 Dose: 2 puff Amlodipine Besylate (Norvasc -) 5 mg PO DAILY [facility] Last Admin: 09/06/16 09:25 Dose: 5 mg Fluticasone Propionate (Flonase -) 2 spray NS DAILY [facility] Last Admin: 09/06/16 10:39 Dose: 2 spray Furosemide (Lasix -) 20 mg PO DAILY [facility] Last Admin: 09/06/16 09:25 Dose: 20 mg Guaifenesin (Robitussin -) 10 ml PO Q6H PRN PRN Reason: COUGH Last Admin: 09/05/16 22:03 Dose: 10 ml Heparin Sodium (Porcine) (Heparin -) 5,000 unit SQ BID [facility] Last Admin: 09/06/16 09:41 Dose: 5,000 unit Levofloxacin (Levaquin 250 Mg Premixed Ivpb -) 50 mls @ 50 mls/hr IVPB DAILY [facility] Last Admin: 09/06/16 10:38 Dose: 50 mls/hr Latanoprost (Xalatan 0.005% Eye Drops -) 1 drop OD HS [facility] Last Admin: 09/05/16 22:02 Dose: 1 drop Methylprednisolone Sodium Succinate (Solu-Medrol -) 40 mg IVPB Q8H-IV [facility] Last Admin: 09/06/16 09:30 Dose: 40 mg Montelukast Sodium (Singulair -) 10 mg PO HS [facility] Last Admin: 09/05/16 22:01 Dose: 10 mg Pantoprazole Sodium (Protonix -) 40 mg PO DAILY [facility] Last Admin: 09/06/16 09:25 Dose: 40 mg - Objective Vital Signs: Vital Signs Temperature 98.3 F 09/06/16 07:00 Pulse Rate 76 09/06/16 07:00 Respiratory Rate 18 09/06/16 09:00 Blood Pressure 186/99 09/06/16 07:00 O2 Sat by Pulse Oximetry (%) 93 L 09/06/16 09:00 Constitutional: Yes: No Distress, Calm Cardiovascular: Yes: Regular Rate and Rhythm Respiratory: Yes: Diminished, Rhonchi (occasional) Gastrointestinal: Yes: Normal Bowel Sounds, Soft. No: Distention, Tenderness Edema: No Labs: CBC, BMP 09/04/16 05:35 09/04/16 05:35 INR, PTT INR 1.12 (0.82-1.09) 09/03/16 05:54 Problem List - Problems (1) Acute respiratory distress Code(s): J80 - ACUTE RESPIRATORY DISTRESS SYNDROME (2) COPD (chronic obstructive pulmonary disease) Code(s): J44.9 - CHRONIC OBSTRUCTIVE PULMONARY DISEASE, UNSPECIFIED Qualifiers : COPD type: COPD with acute exacerbation Qualified Code(s): J44.1 - Chronic obstructive pulmonary disease with (acute) exacerbation (3) HTN (hypertension) Code(s): I10 - ESSENTIAL (PRIMARY) HYPERTENSION Qualifiers: Hypertension type: essential hypertension Qualified Code(s): I10 - Essential (primary) hypertension (4) Diastolic CHF Code(s): I50.30 - UNSPECIFIED DIASTOLIC (CONGESTIVE) HEART FAILURE Assessment/Plan PLAN -- iv antibiotics and Solumedrol-- taper to q12h -- Protonix for GI prophylaxis -- on PO Lasix -- OOB -- DVT prophylaxis-- heparin -- nebs and O2 -- ambulating without difficulty -- dc planning
[2016-09-06] MEDS: MONTELUKAST NA 10 MG TABLET PO SCH (21:41)
[2016-09-06] MEDS: LATANOPROST 0.005% OPHTH SOLN 2.5ML BOTTLE OD SCH (21:43)
[2016-09-07] MEDS: amLODIPine BESYLATE 5 MG TABLET (FP) PO SCH (06:41)
[2016-09-07] MEDS ORDERED: amLODIPine BESYLATE 5 MG TABLET (FP) PO ONE (06:45)
[2016-09-07] MEDS ORDERED: PT OWN MED DRAWER 7, Y5N ONE ×2 (10:07→21:04)
--- NOTE | 2016-09-07 11:56 | PN ---
Progress Note, Physician History of Present Illness: Pt has increased dyspnea and wheezing. No chest pain or palpitations. Refused meds this A.M. - Current Medication List Current Medications: Active Medications Acetaminophen (Tylenol -) 650 mg PO Q6H PRN PRN Reason: FEVER OR PAIN Aclidinium [place] (Tudorza -) 1 puff IH BID [facility] Last Admin: 09/06/16 21:43 Dose: 1 puff Albuterol Sulfate (Ventolin 0.083% Nebulizer Soln -) 1 amp NEB Q6H PRN PRN Reason: SHORT OF BREATH/WHEEZING Albuterol Sulfate (Ventolin Hfa Inhaler -) 2 puff IH Q4H PRN PRN Reason: SHORTNESS OF BREATH Last Admin: 09/04/16 22:06 Dose: 2 puff Amlodipine Besylate (Norvasc -) 5 mg PO DAILY [facility] Last Admin: 09/07/16 06:41 Dose: 5 mg Fluticasone Propionate (Flonase -) 2 spray NS DAILY [facility] Last Admin: 09/06/16 10:39 Dose: 2 spray Furosemide (Lasix -) 20 mg PO DAILY [facility] Last Admin: 09/06/16 09:25 Dose: 20 mg Guaifenesin (Robitussin -) 10 ml PO Q6H PRN PRN Reason: COUGH Last Admin: 09/05/16 22:03 Dose: 10 ml Heparin Sodium (Porcine) (Heparin -) 5,000 unit SQ BID [facility] Last Admin: 09/06/16 21:41 Dose: 5,000 unit Levofloxacin (Levaquin 250 Mg Premixed Ivpb -) 50 mls @ 50 mls/hr IVPB DAILY [facility] Last Admin: 09/06/16 10:38 Dose: 50 mls/hr Latanoprost (Xalatan 0.005% Eye Drops -) 1 drop OD HS [facility] Last Admin: 09/06/16 21:43 Dose: 1 drop Methylprednisolone Sodium Succinate (Solu-Medrol -) 40 mg IVPB BID [facility] Last Admin: 09/06/16 21:41 Dose: 40 mg Montelukast Sodium (Singulair -) 10 mg PO HS [facility] Last Admin: 09/06/16 21:41 Dose: 10 mg Pantoprazole Sodium (Protonix -) 40 mg PO DAILY [facility] Last Admin: 09/06/16 09:25 Dose: 40 mg - Objective Vital Signs: Vital Signs Temperature 97.6 F 09/07/16 09:50 Pulse Rate 88 09/07/16 09:50 Respiratory Rate 20 09/07/16 09:50 Blood Pressure 151/94 09/07/16 09:50 O2 Sat by Pulse Oximetry (%) 95 09/06/16 21:00 Constitutional: Yes: Mild Distress Eyes: No: Sclera Icterus HENT: Yes: Atraumatic Neck: Yes: Supple, Trachea Midline Cardiovascular: Yes: Regular Rate and Rhythm Respiratory: Yes: Wheezes (bilateral) Gastrointestinal: Yes: Soft. No: Tenderness Extremities: No: Calf Tenderness Edema: No Neurological: Yes: Alert, Oriented Labs: CBC, BMP 09/04/16 05:35 09/04/16 05:35 INR, PTT INR 1.12 (0.82-1.09) 09/03/16 05:54 Problem List - Problems (1) Acute respiratory distress Code(s): J80 - ACUTE RESPIRATORY DISTRESS SYNDROME (2) COPD (chronic obstructive pulmonary disease) Code(s): J44.9 - CHRONIC OBSTRUCTIVE PULMONARY DISEASE, UNSPECIFIED Qualifiers : COPD type: COPD with acute exacerbation Qualified Code(s): J44.1 - Chronic obstructive pulmonary disease with (acute) exacerbation (3) Diastolic CHF Code(s): I50.30 - UNSPECIFIED DIASTOLIC (CONGESTIVE) HEART FAILURE Qualifiers : Congestive heart failure chronicity: acute on chronic Qualified Code (s): I50.33 - Acute on chronic diastolic (congestive) heart failure Assessment/Plan 89 year old lady with acute exacerbation obstructive airway disease, acute bronchitis and diastolic heart failure. Today patient has increased wheezing and dyspnea. Case discussed with Dr. Springer. Case discussed with patient;she agrees to take her meds now. Suggest: Continue inhaled bronchodilators Steroids continued O2 to maintain SaO2>90 Levaquin Diuretic CXR Echocardiogram .
--- NOTE | 2016-09-07 12:10 | PN ---
Progress Note, Physician Chief Complaint: Pt has been having elevated BP in the morning-- started on Norvasc This AM- had high BP and Norvasc given earlier She feels worsening SOB and thinks its the medication that caused it She is refusing to take her meds - Current Medication List Current Medications: Active Medications Acetaminophen (Tylenol -) 650 mg PO Q6H PRN PRN Reason: FEVER OR PAIN Aclidinium [place] (Tudorza -) 1 puff IH BID [facility] Last Admin: 09/06/16 21:43 Dose: 1 puff Albuterol Sulfate (Ventolin 0.083% Nebulizer Soln -) 1 amp NEB Q6H PRN PRN Reason: SHORT OF BREATH/WHEEZING Albuterol Sulfate (Ventolin Hfa Inhaler -) 2 puff IH Q4H PRN PRN Reason: SHORTNESS OF BREATH Last Admin: 09/04/16 22:06 Dose: 2 puff Amlodipine Besylate (Norvasc -) 5 mg PO DAILY [facility] Last Admin: 09/07/16 06:41 Dose: 5 mg Fluticasone Propionate (Flonase -) 2 spray NS DAILY [facility] Last Admin: 09/06/16 10:39 Dose: 2 spray Furosemide (Lasix Injection -) 40 mg IVPB DAILY [facility] Guaifenesin (Robitussin -) 10 ml PO Q6H PRN PRN Reason: COUGH Last Admin: 09/05/16 22:03 Dose: 10 ml Heparin Sodium (Porcine) (Heparin -) 5,000 unit SQ BID [facility] Last Admin: 09/06/16 21:41 Dose: 5,000 unit Levofloxacin (Levaquin 250 Mg Premixed Ivpb -) 50 mls @ 50 mls/hr IVPB DAILY [facility] Last Admin: 09/06/16 10:38 Dose: 50 mls/hr Latanoprost (Xalatan 0.005% Eye Drops -) 1 drop OD HS [facility] Last Admin: 09/06/16 21:43 Dose: 1 drop Methylprednisolone Sodium Succinate (Solu-Medrol -) 40 mg IVPB BID [facility] Last Admin: 09/06/16 21:41 Dose: 40 mg Montelukast Sodium (Singulair -) 10 mg PO HS [facility] Last Admin: 09/06/16 21:41 Dose: 10 mg Pantoprazole Sodium (Protonix -) 40 mg PO DAILY [facility] Last Admin: 09/06/16 09:25 Dose: 40 mg - Objective Vital Signs: Vital Signs Temperature 97.6 F 09/07/16 09:50 Pulse Rate 88 09/07/16 09:50 Respiratory Rate 20 09/07/16 09:50 Blood Pressure 151/94 09/07/16 09:50 O2 Sat by Pulse Oximetry (%) 95 09/06/16 21:00 Constitutional: Yes: Anxious Cardiovascular: Yes: Regular Rate and Rhythm Respiratory: Yes: Diminished, Rales, Rhonchi Gastrointestinal: Yes: Normal Bowel Sounds, Soft. No: Distention, Tenderness Edema: No Psychiatric: Yes: Alert, Oriented Labs: CBC, BMP 09/04/16 05:35 09/04/16 05:35 INR, PTT INR 1.12 (0.82-1.09) 09/03/16 05:54 Problem List - Problems (1) Acute respiratory distress Code(s): J80 - ACUTE RESPIRATORY DISTRESS SYNDROME (2) COPD (chronic obstructive pulmonary disease) Code(s): J44.9 - CHRONIC OBSTRUCTIVE PULMONARY DISEASE, UNSPECIFIED Qualifiers : COPD type: COPD with acute exacerbation Qualified Code(s): J44.1 - Chronic obstructive pulmonary disease with (acute) exacerbation (3) HTN (hypertension) Code(s): I10 - ESSENTIAL (PRIMARY) HYPERTENSION Qualifiers: Hypertension type: essential hypertension Qualified Code(s): I10 - Essential (primary) hypertension (4) Diastolic CHF Code(s): I50.30 - UNSPECIFIED DIASTOLIC (CONGESTIVE) HEART FAILURE Qualifiers : Congestive heart failure chronicity: acute on chronic Qualified Code (s): I50.33 - Acute on chronic diastolic (congestive) heart failure Assessment/Plan PLAN -- iv antibiotics and Solumedrol-- taper to q12h -- Protonix for GI prophylaxis -- on PO Lasix-- will price changer to IV -- she does not want Nebs -- uncontrolled BP maybe the cause of CHF -- this was explained to the pt, she is now willing to take her meds -- DVT prophylaxis-- heparin -- O2 as needed -- check Echo and CXR today -- labs in AM
[2016-09-07] MEDS: LEVOFLOXACIN 250 MG IVPB 50 ML IVPB SCH (12:23)
[2016-09-07] MEDS: ACLIDINIUM BROMIDE 400 MCG/INH AERO.POWD IH SCH ×2 (12:25→21:05)
[2016-09-07] MEDS: methylPREDNISolone NA SUCC 40 MG/1 ML VIAL IVPB SCH ×2 (12:26→21:00)
[2016-09-07] MEDS: FLUTICASONE PROP 0.05% 16 GM NASAL SPRAY NS SCH (12:29)
[2016-09-07] MEDS: PANTOPRAZOLE 40 MG TABLET (FP) PO SCH (12:29)
[2016-09-07] MEDS: HEPARIN NA (PORCINE) 5,000 UNITS/ML 1ML VIAL SQ SCH ×2 (12:30→21:01)
[2016-09-07] MEDS: FUROSEMIDE 40 MG/4 ML INJECTABLE VIAL IVPB SCH (12:33)
[2016-09-07] MEDS: FUROSEMIDE 20 MG TABLET (FP) PO SCH (13:18)
[2016-09-07] MEDS: ALBUTEROL SO4 6.7 GM HFA INHALER IH PRN (13:22)
[2016-09-07] MEDS: MONTELUKAST NA 10 MG TABLET PO SCH (21:01)
[2016-09-07] MEDS: LATANOPROST 0.005% OPHTH SOLN 2.5ML BOTTLE OD SCH (21:05)
[2016-09-08 07:38] LABS: MCH 29.9 pg (25.7-33.7); MCHC 33.1 g/dl (32.0-36.0); MEAN CELL VOLUME 90.3 fl (80-96); MEAN PLT VOLUME 9.8 fl (7.5-11.1); PLATELET COUNT 133 K/MM3 (134-434); RDW 13.6 % (11.6-15.6); WHITE BLOOD COUNT 6.9 K/mm3 (4.0-10.0)
[2016-09-08 08:50] LABS: ALBUMIN 3.1 g/dl (3.4-5.0); ANION GAP 8 (8-16); CO2 32 mmol/L (21-32); GLUCOSE,RANDOM 104 mg/dL (74-106)
[2016-09-08 08:57] LABS: ALK PHOS 121 U/L (45-117); BILIRUBIN,TOTAL 0.5 mg/dL (0.2-1.0); CALCIUM 7.9 mg/dL (8.5-10.1); CREATININE 0.8 mg/dL (0.55-1.02); SGOT/AST 13 U/L (15-37); SGPT/ALT 16 U/L (12-78); TOT PROT 5.2 g/dl (6.4-8.2)
[2016-09-08] MEDS ORDERED: PT OWN MED DRAWER 7, Y5N ONE (10:06)
[2016-09-08] MEDS: LEVOFLOXACIN 250 MG IVPB 50 ML IVPB SCH (10:42)
[2016-09-08] MEDS: PANTOPRAZOLE 40 MG TABLET (FP) PO SCH (10:43)
[2016-09-08] MEDS: amLODIPine BESYLATE 5 MG TABLET (FP) PO SCH (10:43)
[2016-09-08] MEDS: methylPREDNISolone NA SUCC 40 MG/1 ML VIAL IVPB SCH (10:44)
[2016-09-08] MEDS: HEPARIN NA (PORCINE) 5,000 UNITS/ML 1ML VIAL SQ SCH ×2 (10:44→21:21)
[2016-09-08] MEDS: FUROSEMIDE 40 MG/4 ML INJECTABLE VIAL IVPB SCH (10:44)
[2016-09-08] MEDS: ACLIDINIUM BROMIDE 400 MCG/INH AERO.POWD IH SCH ×2 (10:55→21:22)
[2016-09-08] MEDS: FLUTICASONE PROP 0.05% 16 GM NASAL SPRAY NS SCH (10:57)
--- NOTE | 2016-09-08 12:11 | PN ---
Progress Note, Physician Chief Complaint: feels better today no SOB she is able to carry out a conversation without feeling SOB no chest pain wants to go home - Current Medication List Current Medications: Active Medications Acetaminophen (Tylenol -) 650 mg PO Q6H PRN PRN Reason: FEVER OR PAIN Aclidinium [place] (Tudorza -) 1 puff IH BID [facility] Last Admin: 09/08/16 10:55 Dose: 1 puff Albuterol Sulfate (Ventolin 0.083% Nebulizer Soln -) 1 amp NEB Q6H PRN PRN Reason: SHORT OF BREATH/WHEEZING Albuterol Sulfate (Ventolin Hfa Inhaler -) 2 puff IH Q4H PRN PRN Reason: SHORTNESS OF BREATH Last Admin: 09/07/16 13:22 Dose: 2 puff Amlodipine Besylate (Norvasc -) 5 mg PO DAILY [facility] Last Admin: 09/08/16 10:43 Dose: 5 mg Fluticasone Propionate (Flonase -) 2 spray NS DAILY [facility] Last Admin: 09/08/16 10:57 Dose: 2 spray Furosemide (Lasix Injection -) 40 mg IVPB DAILY [facility] Last Admin: 09/08/16 10:44 Dose: 40 mg Guaifenesin (Robitussin -) 10 ml PO Q6H PRN PRN Reason: COUGH Last Admin: 09/05/16 22:03 Dose: 10 ml Heparin Sodium (Porcine) (Heparin -) 5,000 unit SQ BID [facility] Last Admin: 09/08/16 10:44 Dose: 5,000 unit Levofloxacin (Levaquin 250 Mg Premixed Ivpb -) 50 mls @ 50 mls/hr IVPB DAILY [facility] Last Admin: 09/08/16 10:42 Dose: 50 mls/hr Latanoprost (Xalatan 0.005% Eye Drops -) 1 drop OD HS [facility] Last Admin: 09/07/16 21:05 Dose: 1 drop Methylprednisolone Sodium Succinate (Solu-Medrol -) 40 mg IVPB BID [facility] Last Admin: 09/08/16 10:44 Dose: 40 mg Montelukast Sodium (Singulair -) 10 mg PO HS [facility] Last Admin: 09/07/16 21:01 Dose: 10 mg Pantoprazole Sodium (Protonix -) 40 mg PO DAILY [facility] Last Admin: 09/08/16 10:43 Dose: 40 mg - Objective Vital Signs: Vital Signs Temperature 98 F 09/08/16 06:00 Pulse Rate 76 09/08/16 06:00 Respiratory Rate 20 09/08/16 06:00 Blood Pressure 162/80 09/08/16 06:00 O2 Sat by Pulse Oximetry (%) 95 09/07/16 20:48 Constitutional: Yes: No Distress, Calm Cardiovascular: Yes: Regular Rate and Rhythm Respiratory: Yes: Diminished. No: Rhonchi Gastrointestinal: Yes: Normal Bowel Sounds, Soft. No: Distention, Tenderness Edema: No Psychiatric: Yes: Alert, Oriented Labs: CBC, BMP 09/08/16 06:00 09/08/16 08:30 INR, PTT INR 1.12 (0.82-1.09) 09/03/16 05:54 Problem List - Problems (1) Acute respiratory distress Code(s): J80 - ACUTE RESPIRATORY DISTRESS SYNDROME (2) COPD (chronic obstructive pulmonary disease) Code(s): J44.9 - CHRONIC OBSTRUCTIVE PULMONARY DISEASE, UNSPECIFIED Qualifiers : COPD type: COPD with acute exacerbation Qualified Code(s): J44.1 - Chronic obstructive pulmonary disease with (acute) exacerbation (3) HTN (hypertension) Code(s): I10 - ESSENTIAL (PRIMARY) HYPERTENSION Qualifiers: Hypertension type: essential hypertension Qualified Code(s): I10 - Essential (primary) hypertension (4) Diastolic CHF Code(s): I50.30 - UNSPECIFIED DIASTOLIC (CONGESTIVE) HEART FAILURE Qualifiers : Congestive heart failure chronicity: acute on chronic Qualified Code (s): I50.33 - Acute on chronic diastolic (congestive) heart failure Assessment/Plan PLAN -- iv antibiotics -- change to PO -- Solumedrol-- taper down to PO -- Protonix for GI prophylaxis -- CXR-- atelectasis-- incentive spirometry ordered -- Replace potassium -- she does not want Nebs -- uncontrolled BP maybe the cause of CHF -- this was explained to the pt, she is now willing to take her meds-- continue with Norvasc -- DVT prophylaxis-- heparin -- O2 as needed -- check Echo-- noted - normal LVEF -- dc plan for tomorrow
[2016-09-08] MEDS ORDERED: POTASSIUM CHLORIDE 40 MEQ/30 ML UNIT DOSE CUP PO ONE (13:15)
--- NOTE | 2016-09-08 18:59 | PN ---
Progress Note, Physician History of Present Illness: Dyspnea has improved. No chest pain or palpitations - Current Medication List Current Medications: Active Medications Acetaminophen (Tylenol -) 650 mg PO Q6H PRN PRN Reason: FEVER OR PAIN Aclidinium [place] (Tudorza -) 1 puff IH BID [facility] Last Admin: 09/08/16 10:55 Dose: 1 puff Albuterol Sulfate (Ventolin 0.083% Nebulizer Soln -) 1 amp NEB Q6H PRN PRN Reason: SHORT OF BREATH/WHEEZING Albuterol Sulfate (Ventolin Hfa Inhaler -) 2 puff IH Q4H PRN PRN Reason: SHORTNESS OF BREATH Last Admin: 09/07/16 13:22 Dose: 2 puff Amlodipine Besylate (Norvasc -) 5 mg PO DAILY [facility] Last Admin: 09/08/16 10:43 Dose: 5 mg Fluticasone Propionate (Flonase -) 2 spray NS DAILY [facility] Last Admin: 09/08/16 10:57 Dose: 2 spray Furosemide (Lasix -) 20 mg PO DAILY [facility] Guaifenesin (Robitussin -) 10 ml PO Q6H PRN PRN Reason: COUGH Last Admin: 09/05/16 22:03 Dose: 10 ml Heparin Sodium (Porcine) (Heparin -) 5,000 unit SQ BID [facility] Last Admin: 09/08/16 10:44 Dose: 5,000 unit Latanoprost (Xalatan 0.005% Eye Drops -) 1 drop OD HS [facility] Last Admin: 09/07/16 21:05 Dose: 1 drop Levofloxacin (Levaquin -) 250 mg PO DAILY@0600 [facility] Montelukast Sodium (Singulair -) 10 mg PO HS [facility] Last Admin: 09/07/16 21:01 Dose: 10 mg Pantoprazole Sodium (Protonix -) 40 mg PO DAILY [facility] Last Admin: 09/08/16 10:43 Dose: 40 mg Prednisone (Deltasone -) 40 mg PO DAILY [facility] - Objective Vital Signs: Vital Signs Temperature 97.9 F 09/08/16 17:23 Pulse Rate 85 09/08/16 17:23 Respiratory Rate 18 09/08/16 17:23 Blood Pressure 141/76 09/08/16 17:23 O2 Sat by Pulse Oximetry (%) 95 09/08/16 09:00 Constitutional: Yes: No Distress Eyes: No: Sclera Icterus HENT: Yes: Atraumatic, Normocephalic Neck: Yes: Trachea Midline Cardiovascular: Yes: Regular Rate and Rhythm. No: JVD Respiratory: Yes: CTA Bilaterally Gastrointestinal: Yes: Soft. No: Tenderness Edema: No Neurological: Yes: Alert, Oriented Labs: CBC, BMP 09/08/16 06:00 09/08/16 08:30 INR, PTT INR 1.12 (0.82-1.09) 09/03/16 05:54 - ....Imaging Chest X-ray: Report Reviewed, Image Reviewed (Left basilar atelectasis) Problem List - Problems (1) Acute respiratory distress Code(s): J80 - ACUTE RESPIRATORY DISTRESS SYNDROME (2) COPD (chronic obstructive pulmonary disease) Code(s): J44.9 - CHRONIC OBSTRUCTIVE PULMONARY DISEASE, UNSPECIFIED Qualifiers : COPD type: COPD with acute exacerbation Qualified Code(s): J44.1 - Chronic obstructive pulmonary disease with (acute) exacerbation (3) Diastolic CHF Code(s): I50.30 - UNSPECIFIED DIASTOLIC (CONGESTIVE) HEART FAILURE Qualifiers : Congestive heart failure chronicity: acute on chronic Qualified Code (s): I50.33 - Acute on chronic diastolic (congestive) heart failure Assessment/Plan 89 year old lady with acute exacerbation obstructive airway disease, acute bronchitis and diastolic heart failure. Respiratory status improved Suggest: Continue inhaled bronchodilators Steroids continued O2 to maintain SaO2>90 Levaquin Diuretic .
[2016-09-08 21:19] VITALS: PULSE 86
[2016-09-08] MEDS: MONTELUKAST NA 10 MG TABLET PO SCH (21:21)
[2016-09-08] MEDS: LATANOPROST 0.005% OPHTH SOLN 2.5ML BOTTLE OD SCH (21:22)
[2016-09-09 05:39] VITALS: BP 140/72; TEMP 98
[2016-09-09] MEDS ORDERED: LEVOFLOXACIN 250 MG TABLET (FP) PO SCH (06:00)
--- NOTE | 2016-09-09 08:25 | DS ---
Physical Examination Vital Signs: Vital Signs Temperature 98 F 09/09/16 05:38 Pulse Rate 86 09/09/16 05:38 Respiratory Rate 20 09/09/16 05:38 Blood Pressure 140/72 09/09/16 05:38 O2 Sat by Pulse Oximetry (%) 93 L 09/08/16 21:00 Findings/Remarks: the patient feels much better wants to go home Denies chest pain Breathing stable Constitutional: Yes: No Distress, Calm Eyes: Yes: Conjunctiva Clear Neck: Yes: Supple, Trachea Midline Cardiovascular: Yes: Regular Rate and Rhythm Respiratory: Yes: CTA Bilaterally Gastrointestinal: Yes: Normal Bowel Sounds, Soft Edema: LLE: Trace, RLE: Trace Neurological: Yes: Alert Psychiatric: Yes: Alert Labs: CBC, BMP 09/08/16 06:00 09/08/16 08:30 Discharge Summary Reason For Visit: COPD, ACUTE RESPIRATORY DISTRESS Current Active Problems Acute respiratory distress (Acute) COPD (chronic obstructive pulmonary disease) (Acute) Diastolic CHF (Acute) HTN (hypertension) (Acute) Hospital Course: 89 year old lady with acute exacerbation obstructive airway disease, acute bronchitis and diastolic heart failure. patient treated with IV Lasix,antibiotics and steroids Respiratory status/condition improved patient is now stable to be discharged Speaking in full sentences Able to walk to bathroom without any difficulty We will discharge home today Home medications reconciled and discussed with patient Patient to follow up in office next week Patient in agreement Plan also discussed with the nursing staff Condition: Stable - Instructions Referrals: Simon Cobb MD [Primary Care Provider] - Disposition: HOME - Home Medications Comprehensive Discharge Medication List: Ambulatory Orders Albuterol Sulfate Inhaler - [Ventolin HFA Inhaler -] 2 inh PO Q4H 12/02/15 Aspirin [ASA -] 81 mg PO DAILY 12/02/15 Bimatoprost [Lumigan] 1 drop OD HS 12/02/15 Folic Acid 1 mg PO DAILY 12/02/15 Montelukast Na [Singulair -] 10 mg PO HS 12/02/15 Tiotropium [place] [Spiriva] 1 inh IH DAILY 12/02/15 Calcium Carbonate [Calcium] 1,000 mg PO DAILY 09/03/16 Cholecalciferol (Vitamin D3) [Vitamin D3 -] 1,000 unit PO DAILY 09/03/16 Mometasone Furoate 2 sprays NS DAILY 09/03/16 Amlodipine Besylate [Norvasc -] 5 mg PO DAILY #30 tablet 09/06/16 Levofloxacin [Levaquin -] 250 mg PO DAILY #4 tablet 09/06/16 Prednisone [Deltasone -] 10 mg PO DAILY #60 tablet 09/06/16 Acetaminophen [Tylenol .Regular Strength -] 650 mg PO Q6H PRN #0 tablet Aclidinium [place] [Tudorza -] 1 puff IH BID inhaler 09/09/16 Albuterol 0.083% Nebulizer Cat [Ventolin 0.083% Nebulizer Soln -] 1 amp NEB Q6H PRN #0 amp 09/09/16 Furosemide [Lasix -] 20 mg PO DAILY tablet 09/09/16 Guaifenesin [Robitussin -] 10 ml PO Q6H PRN #0 cup 09/09/16 Latanoprost 0.005% Eye Drops [Xalatan 0.005% Eye Drops -] 1 drop OD HS drops Pantoprazole Sodium [Protonix -] 40 mg PO DAILY #30 tablet.ec 09/09/16
[2016-09-09] MEDS ORDERED: FUROSEMIDE 20 MG TABLET (FP) PO SCH (10:00)
[2016-09-09] MEDS ORDERED: predniSONE 20 MG TABLET (UD) PO SCH (10:00)
--- NOTE | 2016-09-09 10:07 | PN ---
Progress Note, Physician History of Present Illness: Pt feels weak but dyspnea has improved. No chest pain or palpitations. No cough or sputum production. - Current Medication List Current Medications: Active Medications Acetaminophen (Tylenol -) 650 mg PO Q6H PRN PRN Reason: FEVER OR PAIN Aclidinium [place] (Tudorza -) 1 puff IH BID [facility] Last Admin: 09/08/16 21:22 Dose: 1 puff Albuterol Sulfate (Ventolin 0.083% Nebulizer Soln -) 1 amp NEB Q6H PRN PRN Reason: SHORT OF BREATH/WHEEZING Albuterol Sulfate (Ventolin Hfa Inhaler -) 2 puff IH Q4H PRN PRN Reason: SHORTNESS OF BREATH Last Admin: 09/07/16 13:22 Dose: 2 puff Amlodipine Besylate (Norvasc -) 5 mg PO DAILY [facility] Last Admin: 09/08/16 10:43 Dose: 5 mg Fluticasone Propionate (Flonase -) 2 spray NS DAILY [facility] Last Admin: 09/08/16 10:57 Dose: 2 spray Furosemide (Lasix -) 20 mg PO DAILY [facility] Guaifenesin (Robitussin -) 10 ml PO Q6H PRN PRN Reason: COUGH Last Admin: 09/05/16 22:03 Dose: 10 ml Heparin Sodium (Porcine) (Heparin -) 5,000 unit SQ BID [facility] Last Admin: 09/08/16 21:21 Dose: 5,000 unit Latanoprost (Xalatan 0.005% Eye Drops -) 1 drop OD HS [facility] Last Admin: 09/08/16 21:22 Dose: 1 drop Levofloxacin (Levaquin -) 250 mg PO DAILY@0600 [facility] Last Admin: 09/09/16 06:15 Dose: 250 mg Montelukast Sodium (Singulair -) 10 mg PO HS [facility] Last Admin: 09/08/16 21:21 Dose: 10 mg Pantoprazole Sodium (Protonix -) 40 mg PO DAILY [facility] Last Admin: 09/08/16 10:43 Dose: 40 mg Prednisone (Deltasone -) 40 mg PO DAILY [facility] - Objective Vital Signs: Vital Signs Temperature 98 F 09/09/16 05:38 Pulse Rate 86 09/09/16 05:38 Respiratory Rate 20 09/09/16 05:38 Blood Pressure 140/72 09/09/16 05:38 O2 Sat by Pulse Oximetry (%) 93 L 09/08/16 21:00 Constitutional: Yes: No Distress Eyes: No: Sclera Icterus HENT: Yes: Atraumatic, Normocephalic Neck: Yes: Supple Cardiovascular: Yes: Regular Rate and Rhythm. No: JVD Respiratory: Yes: CTA Bilaterally Gastrointestinal: Yes: Soft. No: Tenderness Extremities: No: Calf Tenderness Edema: No Neurological: Yes: Alert, Oriented Labs: CBC, BMP 09/08/16 06:00 09/08/16 08:30 INR, PTT INR 1.12 (0.82-1.09) 09/03/16 05:54 Problem List - Problems (1) Acute respiratory distress Code(s): J80 - ACUTE RESPIRATORY DISTRESS SYNDROME (2) COPD (chronic obstructive pulmonary disease) Code(s): J44.9 - CHRONIC OBSTRUCTIVE PULMONARY DISEASE, UNSPECIFIED Qualifiers : COPD type: COPD with acute exacerbation Qualified Code(s): J44.1 - Chronic obstructive pulmonary disease with (acute) exacerbation (3) Diastolic CHF Code(s): I50.30 - UNSPECIFIED DIASTOLIC (CONGESTIVE) HEART FAILURE Qualifiers : Congestive heart failure chronicity: acute on chronic Qualified Code (s): I50.33 - Acute on chronic diastolic (congestive) heart failure Assessment/Plan 89 year old lady with acute exacerbation obstructive airway disease, acute bronchitis and diastolic heart failure. Respiratory status improved Suggest: Continue inhaled bronchodilators Steroidstaper O2 to maintain SaO2>90 Levaquin-complete course Diuretic discharge planning in progress .
[2016-09-09] MEDS ORDERED: PT OWN MED DRAWER 7, Y5N ONE (10:25)
[2016-09-09] MEDS: PANTOPRAZOLE 40 MG TABLET (FP) PO SCH (10:33)
[2016-09-09] MEDS: HEPARIN NA (PORCINE) 5,000 UNITS/ML 1ML VIAL SQ SCH (10:45)
[2016-09-09] MEDS: FLUTICASONE PROP 0.05% 16 GM NASAL SPRAY NS SCH (11:11)
[2016-09-09] MEDS: amLODIPine BESYLATE 5 MG TABLET (FP) PO SCH (11:11)
[2016-09-09] MEDS: ACLIDINIUM BROMIDE 400 MCG/INH AERO.POWD IH SCH (11:11)
== END 2016-09-09 11:05 | disposition home or self-care (01) | DRG 190 ==
LOC: JER 02:30 → UNDOADMIN 09:22 → JERBED 09:22 → J7W 12:22 → JERBED 12:22 → J7W 20:03
PROVIDERS: ADMIT Internal Medicine; ATTEND Internal Medicine
DX: J44.1 Chronic obstructive pulmonary disease with (acute) exacerbation (principal); I50.33 Acute on chronic diastolic (congestive) heart failure; J45.902 Unspecified asthma with status asthmaticus; J80 Acute respiratory distress syndrome; Q21.1 Atrial septal defect; Z96.643 Presence of artificial hip joint, bilateral; D50.9 Iron deficiency anemia, unspecified; I10 Essential (primary) hypertension
CPT/HCPCS: 36415; 71010-TC; 71020-TC; 80053; 82550; 84484; 85025; 85027; 85610; 87040; 93005; 93010; 93306-TC; 99284-25; J1644

== ENCOUNTER 2016-11-21 21:57 | Inpatient (IN) | payer OTHER ==
--- NOTE | 2016-11-21 23:52 | PDOC ---
[id number] RT ANKLE PAIN Time Seen by Provider: 11/21/16 23:37 - History of Present Illness Initial Comments: 11/21/16 23:52 CHIEF COMPLAINT: right leg pain HISTORY OF PRESENT ILLNESS: 89 yo F with hx of CAD (s/p pacemaker), COPD, right popliteal DVT, arthritis, cellulitis (2016), bilateral knee replacements presents to ED with R lower leg pain, redness, and swelling since last night. Patient denies any shortness of breath, chest pain, or palpitations. No recent travel or sick contacts. PAST MEDICAL HISTORY: as per HPI SOCIAL HISTORY:Denies tobacco, alcohol, illicit drug use. SURGICAL HISTORY: Denies ALLERGIES: amoxicillin, mold, MSG REVIEW OF SYSTEMS General/Constitutional: Denies fever or chills. Denies weakness, weight change. HEENT: Denies change in vision. Denies ear pain or discharge. Denies sore throat. Cardiovascular: Denies chest pain or shortness of breath. Respiratory: Denies cough, wheezing, or hemoptysis. Gastrointestinal: Denies nausea, vomiting, diarrhea or constipation. Denies rectal bleeding. Genitourinary: Denies dysuria, frequency, or change in urination. Musculoskeletal: Pain to R lower leg. Skin and breasts: Redness to right foot and lower leg since last night. PHYSICAL EXAM General Appearance: Well-appearing, appropriately dressed. No apparent distress , no intoxication. HEENT: EOMI, PERRLA, normal ENT inspection, normal voice, TMs normal, pharynx normal. No conjunctival pallor. No photophobia, scleral icterus. Neck: Supple. Trachea midline. No tenderness, rigidity, carotid bruit, stridor , lymphadenopathy, or thyromegaly. Respiratory/Chest: Lungs CTAB. Cardiovascular: RRR, S1, S2. Vascular Pulses: Dorsalis-Pedis (R): 1+, Dorsalis-Pedis (L): 2+ Gastrointestinal/Abdominal: Normal bowel sounds. Abdomen soft, non-distended. No tenderness or rebound tenderness. No organomegaly, pulsatile mass, guarding , hernia, hepatomegaly, splenomegaly. Lymphatic: No adenopathy, tenderness. Musculoskeletal/Extremities: Erythema and 2+ pitting edema to R lower leg and foot, warm to touch. R calf tenderness. 1cm x 1cm excoriated lesion to R calf. FROM of all extremities, normal capillary refill. Pelvis Stable. No CVA tenderness. Integumentary: Appropriate color, dry, warm. 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 Fully oriented, alert. Appropriate mood/affect. Motor strength 5/5. No appreciable EOM palsy, facial droop or sensory deficit. Past History - Past Medical History Allergies/Adverse Reactions: Allergies Allergy/AdvReac Type Severity Reaction Status Date / Time amoxicillin [Amoxicillin] Allergy Mild Rash Verified 11/21/16 22:32 mold Allergy Verified 11/21/16 22:32 MSG AdvReac Intermediate Uncoded 11/21/16 22:32 Home Medications: Ambulatory Orders Albuterol Sulfate Inhaler - [Ventolin HFA Inhaler -] 2 inh PO Q4H 12/02/15 Aspirin [ASA -] 81 mg PO DAILY 12/02/15 Bimatoprost [Lumigan] 1 drop OD HS 12/02/15 Folic Acid 1 mg PO DAILY 12/02/15 Montelukast Na [Singulair -] 10 mg PO HS 12/02/15 Tiotropium [place] [Spiriva] 1 inh IH DAILY 12/02/15 Calcium Carbonate [Calcium] 1,000 mg PO DAILY 09/03/16 Cholecalciferol (Vitamin D3) [Vitamin D3 -] 1,000 unit PO DAILY 09/03/16 Mometasone Furoate 2 sprays NS DAILY 09/03/16 Levofloxacin [Levaquin -] 250 mg PO DAILY #4 tablet 09/06/16 Prednisone [Deltasone -] 10 mg PO DAILY #60 tablet 09/06/16 Acetaminophen [Tylenol .Regular Strength -] 650 mg PO Q6H PRN #0 tablet Aclidinium [place] [Tudorza -] 1 puff IH BID inhaler 09/09/16 Albuterol 0.083% Nebulizer Cat [Ventolin 0.083% Nebulizer Soln -] 1 amp NEB Q6H PRN #0 amp 09/09/16 Furosemide [Lasix -] 20 mg PO DAILY tablet 09/09/16 Guaifenesin [Robitussin -] 10 ml PO Q6H PRN #0 cup 09/09/16 Latanoprost 0.005% Eye Drops [Xalatan 0.005% Eye Drops -] 1 drop OD HS drops Pantoprazole Sodium [Protonix -] 40 mg PO DAILY #30 tablet.ec 09/09/16 Anemia: Yes Asthma: Yes Cancer: No Cardiac Disorders: Yes (OPEN VALVE OR DUCT SINCE ) CVA: No COPD: Yes CHF: No Dementia: No Diabetes: No GI Disorders: No Disorders: No HTN: No Hypercholesterolemia: No Liver Disease: No Suicide Attempt (Hx): No Seizures: No Thyroid Disease: No - Surgical History Abdominal Surgery: Yes (hernia repair) Appendectomy: No Cardiac Surgery: No Cholecystectomy: No Lung Surgery: No Neurologic Surgery: No Orthopedic Surgery: Yes (left hip sx x5, left arm sx x1, tonsils as child) - Immunization History Immunization Up to Date: Yes - Psycho/Social/Smoking Cessation Hx Anxiety: No Suicidal Ideation: No Smoking Status: No Smoking History: Never smoked Have you smoked in the past 12 months: No Number of Cigarettes Smoked Daily: 0 Hx Alcohol Use: No Drug/Substance Use Hx: No Substance Use Type: None Hx Substance Use Treatment: No *Physical Exam - Vital Signs Last Vital Signs Temp Pulse Resp BP Pulse Ox 98.6 F 102 H 20 133/53 96 11/21/16 22:02 11/21/16 22:02 11/21/16 22:02 11/21/16 22:02 11/21/16 22:02 ED Treatment Course - LABORATORY CBC & Chemistry Diagram: 11/22/16 01:53 11/22/16 01:53 Medical Decision Making - Medical Decision Making 11/22/16 02:59 89 yo F with hx of CAD (s/p pacemaker), COPD, right popliteal DVT, arthritis, cellulitis (2016), bilateral knee replacements presents to ED with R lower leg pain, redness, and swelling since last night. Patient has tenderness to R calf with pitting edema, concern for DVT. -Duplex US of R leg. US positive for DVT in peroneal vein. -50 mg Lovenox SQ -600 mg Clindamycin for cellulitis of R leg Discussed case with PCP Reza, who accepts patient for inpatient admission for DVT of R leg. *DC/Admit/Observation/Transfer Diagnosis at time of Disposition: Peroneal DVT (deep venous thrombosis) Cellulitis Qualifiers: Site of cellulitis: extremity Site of cellulitis of extremity: lower extremity Laterality: right Qualified Code(s): L03.115 - Cellulitis of right lower limb - Discharge Dispostion Admit: Yes
[2016-11-22] MEDS ORDERED: ENOXAPARIN NA (PORCINE) 40 MG/0.4 ML DISP.SYRIN SQ ONE (01:40)
[2016-11-22] MEDS ORDERED: ENOXAPARIN NA (PORCINE) 60 MG/0.6 ML DISP.SYRIN SQ ONE (02:04)
[2016-11-22 02:10] LABS: BASOPHIL 0.4 % (0-2.0); EOSINOPHIL 0.3 % (0-4.5); MCH 29.7 pg (25.7-33.7); MCHC 33.2 g/dl (32.0-36.0); MEAN CELL VOLUME 89.5 fl (80-96); MEAN PLT VOLUME 9.8 fl (7.5-11.1); NEUTROPHILS 83.5 % (42.8-82.8); PLATELET COUNT 144 K/MM3 (134-434); RDW 14.5 % (11.6-15.6); WHITE BLOOD COUNT 10.2 K/mm3 (4.0-10.0)
[2016-11-22 02:25] LABS: INR 1.1 (0.82-1.09); PROTHROMBIN TIME (PATIENT) 12.1 SEC (9.98-11.88)
[2016-11-22 02:35] LABS: ALBUMIN 3.3 g/dl (3.4-5.0); CALCIUM 8.3 mg/dL (8.5-10.1)
[2016-11-22 02:37] LABS: BILIRUBIN,TOTAL 0.8 mg/dL (0.2-1.0); TOT PROT 5.5 g/dl (6.4-8.2)
[2016-11-22] MEDS ORDERED: CLINDAMYCIN 600MG PREMIX IVPB 50 ML IVPB ONE (02:50)
[2016-11-22] MEDS ORDERED: SODIUM CHLORIDE 0.9% 1000 ML INFUS.BAG IV ONE (02:53)
[2016-11-22] MEDS ORDERED: CLINDAMYCIN PHOSPHATE 600 MG/4 ML VIAL ONE (03:04)
[2016-11-22] MEDS ORDERED: ACETAMINOPHEN 325 MG TABLET (FP) PO ONE (03:56)
[2016-11-22] MEDS ORDERED: ACETAMINOPHEN 325 MG TABLET (FP) ONE (03:56)
[2016-11-22 05:38] VITALS: BMI 20.4
--- NOTE | 2016-11-22 09:08 | HP ---
Admitting History and Physical - Primary Care Physician PCP: Simon Cobb - Admission Chief Complaint: right leg pain History of Present Illness: ER HISTORY - History of Present Illness Initial Comments: 11/21/16 23:52 CHIEF COMPLAINT: right leg pain HISTORY OF PRESENT ILLNESS: 89 yo F with hx of CAD (s/p pacemaker), COPD, right popliteal DVT, arthritis, cellulitis (2016), bilateral knee replacements presents to ED with R lower leg pain, redness, and swelling since last night. Patient denies any shortness of breath, chest pain, or palpitations. No recent travel or sick contacts. PAST MEDICAL HISTORY: as per HPI SOCIAL HISTORY:Denies tobacco, alcohol, illicit drug use. SURGICAL HISTORY: Denies ALLERGIES: amoxicillin, mold, MSG Pt seen by me on the floors spoke with Vascular surgeon Pt has been having right leg pain and swelling, with redness for about a week now. She also has been feeling depressed for last few weeks, not interested in doing activities. Has chills As per ER notes, pt does not recall history of blood clots in leg. She states she was on Coumadin many years ago for left hip replacement .She was admitted here last year for DVT left leg and was on Eliquis. History Source: Patient Limitations to Obtaining History: No Limitations - Past Medical History ART GILDER: Yes: Other (FORGETFULNESS) Cardiovascular: Yes: HTN Pulmonary: Yes: COPD Gastrointestinal: Yes: Gastritis, Other (IRON DEF ANEMIA) Heme/Onc: Yes: Anemia - Past Surgical History Past Surgical History: Yes: Joint Replacement, Permanent Pacemaker - Smoking History Smoking history: Never smoked Have you smoked in the past 12 months: No Aproximately how many cigarettes per day: 0 - Alcohol/Substance Use Hx Alcohol Use: No Home Medications - Allergies Allergies/Adverse Reactions: Allergies Allergy/AdvReac Type Severity Reaction Status Date / Time amoxicillin [Amoxicillin] Allergy Mild Rash Verified 11/21/16 22:32 mold Allergy Verified 11/21/16 22:32 MSG AdvReac Intermediate Uncoded 11/21/16 22:32 - Home Medications Home Medications: Ambulatory Orders Albuterol Sulfate Inhaler - [Ventolin HFA Inhaler -] 2 inh PO Q4H 12/02/15 Aspirin [ASA -] 81 mg PO DAILY 12/02/15 Bimatoprost [Lumigan] 1 drop OD HS 12/02/15 Folic Acid 1 mg PO DAILY 12/02/15 Montelukast Na [Singulair -] 10 mg PO HS 12/02/15 Tiotropium [place] [Spiriva] 1 inh IH DAILY 12/02/15 Calcium Carbonate [Calcium] 1,000 mg PO DAILY 09/03/16 Cholecalciferol (Vitamin D3) [Vitamin D3 -] 1,000 unit PO DAILY 09/03/16 Mometasone Furoate 2 sprays NS DAILY 09/03/16 Levofloxacin [Levaquin -] 250 mg PO DAILY #4 tablet 09/06/16 Prednisone [Deltasone -] 10 mg PO DAILY #60 tablet 09/06/16 Acetaminophen [Tylenol .Regular Strength -] 650 mg PO Q6H PRN #0 tablet Aclidinium [place] [Tudorza -] 1 puff IH BID inhaler 09/09/16 Albuterol 0.083% Nebulizer Cat [Ventolin 0.083% Nebulizer Soln -] 1 amp NEB Q6H PRN #0 amp 09/09/16 Furosemide [Lasix -] 20 mg PO DAILY tablet 09/09/16 Guaifenesin [Robitussin -] 10 ml PO Q6H PRN #0 cup 09/09/16 Latanoprost 0.005% Eye Drops [Xalatan 0.005% Eye Drops -] 1 drop OD HS drops Pantoprazole Sodium [Protonix -] 40 mg PO DAILY #30 tablet.ec 09/09/16 Review of Systems - Review of Systems Constitutional: reports: Chills. denies: Lethargy, Loss of Appetite Musculoskeletal: reports: Extremity Pain Physical Examination Vital Signs: Vital Signs Temperature 99.1 F 11/22/16 06:00 Pulse Rate 81 11/22/16 06:00 Respiratory Rate 18 11/22/16 06:00 Blood Pressure 138/66 11/22/16 06:00 O2 Sat by Pulse Oximetry (%) 93 L 11/22/16 05:50 Constitutional: Yes: No Distress, Calm Cardiovascular: Yes: Regular Rate and Rhythm Respiratory: Yes: CTA Bilaterally Gastrointestinal: Yes: Normal Bowel Sounds, Soft. No: Distention, Tenderness Extremities: Yes: Erythema (and warmth, tenderness right leg) Edema: Yes Edema: RLE: 2+ Neurological: Yes: Alert Psychiatric: Yes: Alert, Oriented Labs: Laboratory Last Values WBC 10.2 K/mm3 (4.0-10.0) H D 11/22/16 01:53 RBC 4.31 M/mm3 (3.60-5.2) 11/22/16 01:53 Hgb 12.8 GM/dL (10.7-15.3) 11/22/16 01:53 Hct 38.6 % (32.4-45.2) 11/22/16 01:53 MCV 89.5 fl (80-96) 11/22/16 01:53 MCHC 33.2 g/dl (32.0-36.0) 11/22/16 01:53 RDW 14.5 % (11.6-15.6) 11/22/16 01:53 Plt Count 144 K/MM3 (134-434) 11/22/16 01:53 MPV 9.8 fl (7.5-11.1) 11/22/16 01:53 Neutrophils % 83.5 % (42.8-82.8) H 11/22/16 01:53 Lymphocytes % 7.9 % (8-40) L D 11/22/16 01:53 Monocytes % 7.9 % (3.8-10.2) D 11/22/16 01:53 Eosinophils % 0.3 % (0-4.5) D 11/22/16 01:53 Basophils % 0.4 % (0-2.0) 11/22/16 01:53 INR 1.10 (0.82-1.09) 11/22/16 01:53 Sodium 142 mmol/L (136-145) 11/22/16 01:53 Potassium 3.6 mmol/L (3.5-5.1) 11/22/16 01:53 Chloride 103 mmol/L (98-107) 11/22/16 01:53 Carbon Dioxide 32 mmol/L (21-32) 11/22/16 01:53 Anion Gap 7 (8-16) L 11/22/16 01:53 BUN 24 mg/dL (7-18) H 11/22/16 01:53 Creatinine 1.0 mg/dL (0.55-1.02) D 11/22/16 01:53 Creat Clearance w eGFR 52.20 (>60) 11/22/16 01:53 Random Glucose 93 mg/dL (74-106) 11/22/16 01:53 Calcium 8.3 mg/dL (8.5-10.1) L 11/22/16 01:53 Total Bilirubin 0.8 mg/dL (0.2-1.0) D 11/22/16 01:53 AST 18 U/L (15-37) D 11/22/16 01:53 ALT 15 U/L (12-78) 11/22/16 01:53 Alkaline Phosphatase 100 U/L (45-117) 11/22/16 01:53 Total Protein 5.5 g/dl (6.4-8.2) L 11/22/16 01:53 Albumin 3.3 g/dl (3.4-5.0) L 11/22/16 01:53 Imaging - Results Chest X-ray: Image Reviewed (?density in left base) Ultrasound: Report Reviewed EKG: Image Reviewed Problem List - Problems (1) Cellulitis Code(s): L03.90 - CELLULITIS, UNSPECIFIED Qualifiers: Site of cellulitis: extremity Site of cellulitis of extremity: lower extremity Laterality: right Qualified Code(s): L03.115 - Cellulitis of right lower limb (2) Peroneal DVT (deep venous thrombosis) Code(s): I82.499 - ACUTE EMBOLISM AND THROMBOSIS OF DEEP VEIN OF UNSP LOW EXTR (3) COPD (chronic obstructive pulmonary disease) Code(s): J44.9 - CHRONIC OBSTRUCTIVE PULMONARY DISEASE, UNSPECIFIED Qualifiers : COPD type: COPD with acute exacerbation Qualified Code(s): J44.1 - Chronic obstructive pulmonary disease with (acute) exacerbation Assessment/Plan PLAN -- On Eliquis -- seen by Vascular -- on antibiotics -- she has recurrent DVT-- may need IVC filtre-- will speak to Vascular about this -- start Zoloft for depression -- CT chest ordered to evaluate left base density
[2016-11-22] MEDS ORDERED: ALBUTEROL SO4 0.083% IH SOL 2.5 MG/3 ML VIAL.NEB. NEB PRN (09:10)
[2016-11-22] MEDS ORDERED: ACETAMINOPHEN 325 MG TABLET (FP) PO PRN (09:10)
[2016-11-22] MEDS ORDERED: MOMETASONE FUROATE NS SCH (10:00)
[2016-11-22] MEDS ORDERED: predniSONE 5 MG TABLET (UD) PO SCH (10:00)
[2016-11-22] MEDS ORDERED: CEFAZOLIN 1 GM in DEXTROSE 5%-WATER - 50 ML IVPB SCH (11:00)
--- NOTE | 2016-11-22 11:21 | PN ---
Progress Note (short form) - Note Progress Note: Vascular Surgery Pt seen and examined. Right tibial vein DVT with right lower ext cellulitis. Palpable pulses. Pt on eliquis for DVT. Leg elevation. Antibiotics for celluilits. Eliquis for 6 months. Jeffrey Pozo DO
--- NOTE | 2016-11-22 11:54 | EKG ---
Test Reason : Blood Pressure : / mmHG Vent. Rate : 088 BPM Atrial Rate : 088 BPM P-R Int : 180 ms QRS Dur : 168 ms QT Int : 466 ms P-R-T Axes : 064 -21 096 degrees QTc Int : 563 ms Atrial-sensed ventricular-paced rhythm ABNORMAL ECG WHEN COMPARED WITH ECG OF 03-SEP-2016 04:06, Confirmed by SHIREEN MANDUJANO MD ([id number]) on 11/22/2016 11:53:33 AM Referred By: Confirmed By:SHIREEN MANDUJANO MD
[2016-11-22] MEDS: LEVOFLOXACIN 250 MG IVPB 50 ML IVPB SCH (12:37)
[2016-11-22] MEDS: FUROSEMIDE 20 MG TABLET (FP) PO SCH (12:37)
[2016-11-22] MEDS: PANTOPRAZOLE 40 MG TABLET (FP) PO SCH (12:37)
[2016-11-22] MEDS: SERTRALINE HCL 25 MG TABLET (FP) PO SCH (12:37)
[2016-11-22] MEDS: predniSONE 5 MG TABLET (UD) PO SCH (12:37)
[2016-11-22] MEDS ORDERED: PT OWN MED DRAWER 7, Y5N ONE ×3 (12:38→22:05)
[2016-11-22] MEDS: ACLIDINIUM BROMIDE 400 MCG/INH AERO.POWD IH SCH ×2 (15:00→22:36)
[2016-11-22] MEDS: APIXABAN 5 MG TABLET PO SCH ×2 (15:01→22:36)
[2016-11-22] MEDS ORDERED: PATIENT'S OWN MEDICATION (NON-FORMULARY) (Bimatoprost [Lumigan] 1 DROP) OD SCH (22:00)
[2016-11-22] MEDS: MONTELUKAST NA 10 MG TABLET PO SCH (22:35)
[2016-11-22] MEDS: LATANOPROST 0.005% OPHTH SOLN 2.5ML BOTTLE OD SCH (22:57)
[2016-11-23 07:18] LABS: MCH 29.6 pg (25.7-33.7); MCHC 32.8 g/dl (32.0-36.0); MEAN CELL VOLUME 90.2 fl (80-96); PLATELET COUNT 110 K/MM3 (134-434); RDW 14.1 % (11.6-15.6); WHITE BLOOD COUNT 7.3 K/mm3 (4.0-10.0)
[2016-11-23 07:51] LABS: CALCIUM 7.6 mg/dL (8.5-10.1); CREATININE 0.8 mg/dL (0.55-1.02)
--- NOTE | 2016-11-23 10:42 | PN ---
Progress Note, Physician Chief Complaint: observed pt ambulating in hallway with PT no complaints Her leg feels better As per Physical therapist, she is walking with a limp, she is steady walking on walker and not cane - Current Medication List Current Medications: Active Medications Acetaminophen (Tylenol -) 650 mg PO Q6H PRN PRN Reason: FEVER OR PAIN Aclidinium [place] (Tudorza -) 1 puff IH BID [facility] Last Admin: 11/22/16 22:36 Dose: 1 puff Albuterol Sulfate (Ventolin 0.083% Nebulizer Soln -) 1 amp NEB Q6H PRN PRN Reason: SHORT OF BREATH/WHEEZING Apixaban (Eliquis -) 10 mg PO BID [facility] Last Admin: 11/22/16 22:36 Dose: 10 mg Furosemide (Lasix -) 20 mg PO DAILY [facility] Last Admin: 11/22/16 12:37 Dose: 20 mg Levofloxacin (Levaquin 250 Mg Premixed Ivpb -) 50 mls @ 50 mls/hr IVPB DAILY [facility] Last Admin: 11/22/16 12:37 Dose: 50 mls/hr Latanoprost (Xalatan 0.005% Eye Drops -) 1 drop OD HS [facility] Last Admin: 11/22/16 22:57 Dose: 1 drop Montelukast Sodium (Singulair -) 10 mg PO HS [facility] Last Admin: 11/22/16 22:35 Dose: 10 mg Pantoprazole Sodium (Protonix -) 40 mg PO DAILY [facility] Last Admin: 11/22/16 12:37 Dose: 40 mg Prednisone (Deltasone -) 5 mg PO DAILY [facility] Last Admin: 11/22/16 12:37 Dose: 5 mg Sertraline HCl (Zoloft -) 25 mg PO DAILY [facility] Last Admin: 11/22/16 12:37 Dose: 25 mg - Objective Vital Signs: Vital Signs Temperature 98.7 F 11/23/16 06:00 Pulse Rate 80 11/23/16 06:00 Respiratory Rate 16 11/23/16 06:00 Blood Pressure 150/77 11/23/16 06:00 O2 Sat by Pulse Oximetry (%) 93 L 11/22/16 20:00 Constitutional: Yes: No Distress Cardiovascular: Yes: Regular Rate and Rhythm Respiratory: Yes: CTA Bilaterally Gastrointestinal: Yes: Normal Bowel Sounds, Soft. No: Distention, Tenderness Extremities: Yes: Erythema (decreased in rt leg) Edema: Yes Edema: RLE: 2+ Psychiatric: Yes: Alert, Oriented Labs: CBC, BMP 11/23/16 05:50 11/23/16 05:50 INR, PTT INR 1.10 (0.82-1.09) 11/22/16 01:53 Problem List - Problems (1) Cellulitis Code(s): L03.90 - CELLULITIS, UNSPECIFIED Qualifiers: Site of cellulitis: extremity Site of cellulitis of extremity: lower extremity Laterality: right Qualified Code(s): L03.115 - Cellulitis of right lower limb (2) Peroneal DVT (deep venous thrombosis) Code(s): I82.499 - ACUTE EMBOLISM AND THROMBOSIS OF DEEP VEIN OF UNSP LOW EXTR (3) COPD (chronic obstructive pulmonary disease) Code(s): J44.9 - CHRONIC OBSTRUCTIVE PULMONARY DISEASE, UNSPECIFIED Qualifiers : COPD type: COPD with acute exacerbation Qualified Code(s): J44.1 - Chronic obstructive pulmonary disease with (acute) exacerbation Assessment/Plan PLAN -- On Eliquis -- spoke with Vascular -- on antibiotics -- she has recurrent DVT -- will need Eliquis for 1 year , I explained this to the patient. She will also need walker for ambulation and she has a walker at home. -- CT chest noted-- no mass density in lung
--- NOTE | 2016-11-23 10:55 | PN ---
Progress Note (short form) - Note Progress Note: Vascular Surgery Right lower ext DVT with cellulitis. Pt had left lower ext dvt in past and had been treated. With second episode, Would treat for 1 year on AC If pt cannot be anticoagulated, then would need IVC filter. Will follow Jeffrey Pozo DO
[2016-11-23] MEDS ORDERED: PT OWN MED DRAWER 7, Y5N ONE ×3 (11:08→23:06)
[2016-11-23] MEDS: PANTOPRAZOLE 40 MG TABLET (FP) PO SCH (11:09)
[2016-11-23] MEDS: predniSONE 5 MG TABLET (UD) PO SCH (11:09)
[2016-11-23] MEDS: ACLIDINIUM BROMIDE 400 MCG/INH AERO.POWD IH SCH ×2 (11:09→23:13)
[2016-11-23] MEDS: SERTRALINE HCL 25 MG TABLET (FP) PO SCH (11:09)
[2016-11-23] MEDS: FUROSEMIDE 20 MG TABLET (FP) PO SCH (11:09)
[2016-11-23] MEDS: APIXABAN 5 MG TABLET PO SCH ×2 (11:10→23:13)
[2016-11-23] MEDS: LEVOFLOXACIN 250 MG IVPB 50 ML IVPB SCH (11:10)
[2016-11-23] MEDS: MONTELUKAST NA 10 MG TABLET PO SCH (23:13)
[2016-11-23] MEDS: LATANOPROST 0.005% OPHTH SOLN 2.5ML BOTTLE OD SCH (23:13)
[2016-11-24 07:37] LABS: MCH 29.7 pg (25.7-33.7); MCHC 33.1 g/dl (32.0-36.0); MEAN CELL VOLUME 89.8 fl (80-96); MEAN PLT VOLUME 9.9 fl (7.5-11.1); PLATELET COUNT 128 K/MM3 (134-434); RDW 14.3 % (11.6-15.6); WHITE BLOOD COUNT 5.7 K/mm3 (4.0-10.0)
[2016-11-24 08:31] LABS: ALBUMIN 2.7 g/dl (3.4-5.0); BILIRUBIN,TOTAL 0.5 mg/dL (0.2-1.0); CALCIUM 7.9 mg/dL (8.5-10.1); CREATININE 0.9 mg/dL (0.55-1.02); TOT PROT 4.9 g/dl (6.4-8.2)
[2016-11-24] MEDS: FUROSEMIDE 20 MG TABLET (FP) PO SCH (10:27)
[2016-11-24] MEDS: SERTRALINE HCL 25 MG TABLET (FP) PO SCH (10:27)
[2016-11-24] MEDS: PANTOPRAZOLE 40 MG TABLET (FP) PO SCH (10:27)
[2016-11-24] MEDS: predniSONE 5 MG TABLET (UD) PO SCH (10:27)
[2016-11-24] MEDS: ACLIDINIUM BROMIDE 400 MCG/INH AERO.POWD IH SCH ×2 (10:27→21:59)
[2016-11-24] MEDS: APIXABAN 5 MG TABLET PO SCH ×2 (10:28→21:59)
[2016-11-24] MEDS: LEVOFLOXACIN 250 MG IVPB 50 ML IVPB SCH (10:28)
--- NOTE | 2016-11-24 10:38 | PN ---
Progress Note, Physician Chief Complaint: no complaints Her leg feels better - Current Medication List Current Medications: Active Medications Acetaminophen (Tylenol -) 650 mg PO Q6H PRN PRN Reason: FEVER OR PAIN Aclidinium [place] (Tudorza -) 1 puff IH BID [facility] Last Admin: 11/24/16 10:27 Dose: 1 puff Albuterol Sulfate (Ventolin 0.083% Nebulizer Soln -) 1 amp NEB Q6H PRN PRN Reason: SHORT OF BREATH/WHEEZING Apixaban (Eliquis -) 10 mg PO BID [facility] Last Admin: 11/24/16 10:28 Dose: 10 mg Furosemide (Lasix -) 20 mg PO DAILY [facility] Last Admin: 11/24/16 10:27 Dose: 20 mg Levofloxacin (Levaquin 250 Mg Premixed Ivpb -) 50 mls @ 50 mls/hr IVPB DAILY [facility] Last Admin: 11/24/16 10:28 Dose: 50 mls/hr Latanoprost (Xalatan 0.005% Eye Drops -) 1 drop OD HS [facility] Last Admin: 11/23/16 23:13 Dose: 1 drop Montelukast Sodium (Singulair -) 10 mg PO HS [facility] Last Admin: 11/23/16 23:13 Dose: 10 mg Pantoprazole Sodium (Protonix -) 40 mg PO DAILY [facility] Last Admin: 11/24/16 10:27 Dose: 40 mg Potassium Chloride (K-Dur -) 20 meq PO ONCE ONE Stop: 11/24/16 10:38 Prednisone (Deltasone -) 5 mg PO DAILY [facility] Last Admin: 11/24/16 10:27 Dose: 5 mg Sertraline HCl (Zoloft -) 25 mg PO DAILY [facility] Last Admin: 11/24/16 10:27 Dose: 25 mg - Objective Vital Signs: Vital Signs Temperature 97.9 F 11/24/16 06:00 Pulse Rate 73 11/24/16 06:00 Respiratory Rate 20 11/24/16 06:00 Blood Pressure 165/97 11/24/16 06:00 O2 Sat by Pulse Oximetry (%) 100 11/23/16 21:00 Constitutional: Yes: No Distress Cardiovascular: Yes: Regular Rate and Rhythm Respiratory: Yes: Diminished Gastrointestinal: Yes: Normal Bowel Sounds, Soft. No: Distention, Tenderness Extremities: Yes: Erythema (decreased tenderness, warmth and erythema) Edema: Yes (decreased ) Psychiatric: Yes: WNL, Alert Labs: CBC, BMP 11/24/16 06:30 11/24/16 06:30 INR, PTT INR 1.10 (0.82-1.09) 11/22/16 01:53 Problem List - Problems (1) Cellulitis Code(s): L03.90 - CELLULITIS, UNSPECIFIED Qualifiers: Site of cellulitis: extremity Site of cellulitis of extremity: lower extremity Laterality: right Qualified Code(s): L03.115 - Cellulitis of right lower limb (2) Peroneal DVT (deep venous thrombosis) Code(s): I82.499 - ACUTE EMBOLISM AND THROMBOSIS OF DEEP VEIN OF UNSP LOW EXTRM (3) COPD (chronic obstructive pulmonary disease) Code(s): J44.9 - CHRONIC OBSTRUCTIVE PULMONARY DISEASE, UNSPECIFIED Qualifiers : COPD type: COPD with acute exacerbation Qualified Code(s): J44.1 - Chronic obstructive pulmonary disease with (acute) exacerbation Assessment/Plan PLAN -- On Eliquis -- on antibiotics -- she has recurrent DVT -- will need Eliquis for 1 year , I explained this to the patient. She will also need walker for ambulation and she has a walker at home. -- CT chest noted-- no mass density in lung -- DC plan for tomorrow on PO antibiotics and Eliquis -- she will need VNS
[2016-11-24] MEDS ORDERED: POTASSIUM CHLORIDE TABS 20 MEQ TABLET.ER (FP) PO ONE (10:45)
[2016-11-24] MEDS: LATANOPROST 0.005% OPHTH SOLN 2.5ML BOTTLE OD SCH (21:57)
[2016-11-24] MEDS: MONTELUKAST NA 10 MG TABLET PO SCH (22:00)
[2016-11-25] MEDS: HYDROCORTISONE 1% TOPICAL CREAM 30 GM TUBE TP SCH ×2 (07:18→12:51)
--- NOTE | 2016-11-25 10:56 | PN ---
Progress Note (short form) - Note Progress Note: Subjective Patient seen and examined. Chart reviewed. Objective VS: Last Vital Signs Temp Pulse Resp BP Pulse Ox 97.7 F 72 18 146/85 99 11/25/16 06:00 11/25/16 06:00 11/25/16 06:00 11/25/16 06:00 11/24/16 22:00 Labs: CBC, BMP 11/24/16 06:30 11/24/16 06:30 Problem List - Problems (1) Cellulitis Code(s): L03.90 - CELLULITIS, UNSPECIFIED Qualifiers: Site of cellulitis: extremity Site of cellulitis of extremity: lower extremity Laterality: right Qualified Code(s): L03.115 - Cellulitis of right lower limb (2) Peroneal DVT (deep venous thrombosis) Code(s): I82.499 - ACUTE EMBOLISM AND THROMBOSIS OF DEEP VEIN OF UNSP LOW EXTRM (3) COPD (chronic obstructive pulmonary disease) Code(s): J44.9 - CHRONIC OBSTRUCTIVE PULMONARY DISEASE, UNSPECIFIED Qualifiers : COPD type: COPD with acute exacerbation Qualified Code(s): J44.1 - Chronic obstructive pulmonary disease with (acute) exacerbation Physical Exam Constitutional: Yes: No Distress Cardiovascular: Yes: Regular Rate and Rhythm Respiratory: Yes: Diminished Gastrointestinal: Yes: Normal Bowel Sounds, Soft. No: Distention, Tenderness Extremities: Yes: Erythema (decreased tenderness, warmth and erythema) Edema: Yes (decreased ) Psychiatric: Yes: WNL, Alert Assessment and Plan Documentation prepared by Davina Escobar, acting as a bilingual medical assistant for Simon Cobb MD.
[2016-11-25] MEDS ORDERED: PT OWN MED DRAWER 7, Y5N ONE (11:07)
[2016-11-25] MEDS: SERTRALINE HCL 25 MG TABLET (FP) PO SCH (11:09)
[2016-11-25] MEDS: predniSONE 5 MG TABLET (UD) PO SCH (11:09)
[2016-11-25] MEDS: FUROSEMIDE 20 MG TABLET (FP) PO SCH (11:09)
[2016-11-25] MEDS: LEVOFLOXACIN 250 MG IVPB 50 ML IVPB SCH (11:09)
[2016-11-25] MEDS: PANTOPRAZOLE 40 MG TABLET (FP) PO SCH (11:09)
[2016-11-25] MEDS: APIXABAN 5 MG TABLET PO SCH (11:10)
[2016-11-25] MEDS: ACLIDINIUM BROMIDE 400 MCG/INH AERO.POWD IH SCH (11:10)
--- NOTE | 2016-11-25 11:24 | DS ---
Physical Examination Vital Signs: Vital Signs Temperature 97.7 F 11/25/16 06:00 Pulse Rate 72 11/25/16 06:00 Respiratory Rate 18 11/25/16 06:00 Blood Pressure 146/85 11/25/16 06:00 O2 Sat by Pulse Oximetry (%) 99 11/24/16 22:00 Labs: CBC, BMP 11/24/16 06:30 11/24/16 06:30 <Simon Cobb - Last Filed: 11/25/16 11:24> Vital Signs: Vital Signs Temperature 97.7 F 11/25/16 06:00 Pulse Rate 72 11/25/16 06:00 Respiratory Rate 18 11/25/16 06:00 Blood Pressure 146/85 11/25/16 06:00 O2 Sat by Pulse Oximetry (%) 99 11/24/16 22:00 Findings/Remarks: Patient seen and examined Comfortable Feels much better Constitutional: Yes: No Distress, Calm Neck: Yes: Supple Respiratory: Yes: CTA Bilaterally Gastrointestinal: Yes: Soft Edema: RLE: 1+ (RLE mild edema and errythema present) Neurological: Yes: Alert Labs: CBC, BMP 11/24/16 06:30 11/24/16 06:30 <Davina Escobar - Last Filed: 11/25/16 11:30> Discharge Summary Reason For Visit: PERONEAL DVT CELLULITIS Current Active Problems Cellulitis (Acute) Peroneal DVT (deep venous thrombosis) (Acute) - Home Medications Comprehensive Discharge Medication List: Ambulatory Orders Albuterol Sulfate Inhaler - [Ventolin HFA Inhaler -] 2 inh PO Q4H 12/02/15 Bimatoprost [Lumigan] 1 drop OD HS 12/02/15 Folic Acid 1 mg PO DAILY 12/02/15 Montelukast Na [Singulair -] 10 mg PO HS 12/02/15 Tiotropium [place] [Spiriva] 1 inh IH DAILY 12/02/15 Calcium Carbonate [Calcium] 1,000 mg PO DAILY 09/03/16 Cholecalciferol (Vitamin D3) [Vitamin D3 -] 1,000 unit PO DAILY 09/03/16 Mometasone Furoate 2 sprays NS DAILY 09/03/16 Prednisone [Deltasone -] 10 mg PO DAILY #60 tablet 09/06/16 Acetaminophen [Tylenol .Regular Strength -] 650 mg PO Q6H PRN #0 tablet Aclidinium [place] [Tudorza -] 1 puff IH BID inhaler 09/09/16 Albuterol 0.083% Nebulizer Cat [Ventolin 0.083% Nebulizer Soln -] 1 amp NEB Q6H PRN #0 amp 09/09/16 Furosemide [Lasix -] 20 mg PO DAILY tablet 09/09/16 Guaifenesin [Robitussin -] 10 ml PO Q6H PRN #0 cup 09/09/16 Latanoprost 0.005% Eye Drops [Xalatan 0.005% Eye Drops -] 1 drop OD HS drops Pantoprazole Sodium [Protonix -] 40 mg PO DAILY #30 tablet.ec 09/09/16 Apixaban [Eliquis] 5 mg PO BID #90 tablet 11/24/16 Levofloxacin [Levaquin -] 250 mg PO DAILY #6 tablet 11/24/16 Sertraline HCl [Zoloft -] 25 mg PO DAILY #90 tablet 11/24/16 <Simon Cobb - Last Filed: 11/25/16 11:24> Current Active Problems Cellulitis (Acute) Peroneal DVT (deep venous thrombosis) (Acute) Hospital Course: 89 yo F with hx of CAD (s/p pacemaker), COPD, right popliteal DVT, arthritis, cellulitis (2016), bilateral knee replacements presents to ED with R lower leg pain, redness, and swelling. Work revealed patient had recurrent DVT RLE as well as cellulitis. Patient treated with abx as well as blood thinners. Vascular consult also taken Patient is now stable to go back home Patient does not want to go to short term rehab Will send on PO abx and Eliquis Patient needs to be on anticoagulant for at least 1 year Meds reconciled Will follow her closely in the office All above discussed with patient as well as the nursing staff Patient in agreement Will dc today with VNS Discharge time in examining/documenting/quantinating care approximately 35 mins Documentation prepared by ANGEL Osorio, acting as bilingual medical assistant for Simon Cobb MD. - Home Medications Comprehensive Discharge Medication List: Ambulatory Orders Albuterol Sulfate Inhaler - [Ventolin HFA Inhaler -] 2 inh PO Q4H 12/02/15 Bimatoprost [Lumigan] 1 drop OD HS 12/02/15 Folic Acid 1 mg PO DAILY 12/02/15 Montelukast Na [Singulair -] 10 mg PO HS 12/02/15 Tiotropium [place] [Spiriva] 1 inh IH DAILY 12/02/15 Calcium Carbonate [Calcium] 1,000 mg PO DAILY 09/03/16 Cholecalciferol (Vitamin D3) [Vitamin D3 -] 1,000 unit PO DAILY 09/03/16 Mometasone Furoate 2 sprays NS DAILY 09/03/16 Prednisone [Deltasone -] 10 mg PO DAILY #60 tablet 09/06/16 Acetaminophen [Tylenol .Regular Strength -] 650 mg PO Q6H PRN #0 tablet Aclidinium [place] [Tudorza -] 1 puff IH BID inhaler 09/09/16 Albuterol 0.083% Nebulizer Cat [Ventolin 0.083% Nebulizer Soln -] 1 amp NEB Q6H PRN #0 amp 09/09/16 Furosemide [Lasix -] 20 mg PO DAILY tablet 09/09/16 Guaifenesin [Robitussin -] 10 ml PO Q6H PRN #0 cup 09/09/16 Latanoprost 0.005% Eye Drops [Xalatan 0.005% Eye Drops -] 1 drop OD HS drops Pantoprazole Sodium [Protonix -] 40 mg PO DAILY #30 tablet.ec 09/09/16 Apixaban [Eliquis] 5 mg PO BID #90 tablet 11/24/16 Levofloxacin [Levaquin -] 250 mg PO DAILY #6 tablet 11/24/16 Sertraline HCl [Zoloft -] 25 mg PO DAILY #90 tablet 11/24/16 <Davina Escobar - Last Filed: 11/25/16 11:30> - Instructions Referrals: Simon Cobb MD [Primary Care Provider] -
[2016-11-25 13:41] VITALS: TEMP 98.3
[2016-11-25 15:37] VITALS: BP 157/92; PULSE 77
== END 2016-11-25 16:25 | disposition home health service (06) | DRG 300 ==
LOC: JER 21:57 → JERBED 11-22 03:28 → J5S 11-22 04:13
PROVIDERS: ADMIT Internal Medicine; ATTEND Internal Medicine
DX: I82.441 Acute embolism and thrombosis of right tibial vein (principal); L03.115 Cellulitis of right lower limb; J44.9 Chronic obstructive pulmonary disease, unspecified; I25.10 Atherosclerotic heart disease of native coronary artery without angina pectoris; I82.531 Chronic embolism and thrombosis of right popliteal vein; I10 Essential (primary) hypertension; K29.60 Other gastritis without bleeding; D50.8 Other iron deficiency anemias; Z95.0 Presence of cardiac pacemaker; Z96.653 Presence of artificial knee joint, bilateral
CPT/HCPCS: 36415; 71020-TC; 71250-TC; 73610-TC-RT; 73630-TC-RT; 80048; 80053; 85025; 85027; 85610; 93005; 93010; 93971-TC; 97116-GP; 97161-GP; 99285-25

== ENCOUNTER 2017-06-16 23:33 | Emergency (ER) | payer OTHER ==
--- NOTE | 2017-06-17 00:35 | PDOC ---
History of Present Illness - General History Source: Patient Exam Limitations: No Limitations - History of Present Illness Initial Comments: 06/17/17 01:38 The patient is a 89 year old female with a significant past medical history of asthma, COPD, right hip replacement and left hip replacement x5, who presents to the ED s/p mechanical fall at 10:40 PM yesterday. Pt states that she lost her balance and fell on her left elbow and hurt her right hip. She sustained a laceration to her left elbow. Patient managed to move herself and pressed her MedAlert. Ambulance transported the pt to the ED for further evaluation. She reports that she ran out of her Eliquis medication 2 days ago and went to the Pharmacy to try and refill her prescription, but the pharmacy was also out of the medication. The patient denies any head trauma or loss of consciousness. The patient denies having any other injuries or symptoms. <Clarita Ma - Last Filed: 06/17/17 06:40> <Marcel Mccarthy - Last Filed: 06/18/17 09:47> - General Stated Complaint: INJURY Past History <Clarita Ma - Last Filed: 06/17/17 06:40> - Past Medical History Anemia: Yes Asthma: Yes Cancer: No Cardiac Disorders: Yes (OPEN VALVE OR DUCT SINCE ) CVA: No COPD: Yes CHF: No Dementia: No Diabetes: No GI Disorders: No Disorders: No HTN: No Hypercholesterolemia: No Liver Disease: No Seizures: No Thyroid Disease: No - Surgical History Abdominal Surgery: Yes (hernia repair) Appendectomy: No Cardiac Surgery: No Cholecystectomy: No Lung Surgery: No Neurologic Surgery: No Orthopedic Surgery: Yes (left hip sx x5, left arm sx x1, tonsils as child) - Immunization History Immunization Up to Date: Yes - Suicide/Smoking/Psychosocial Hx Smoking Status: No Smoking History: Never smoked Have you smoked in the past 12 months: No Number of Cigarettes Smoked Daily: 0 Hx Alcohol Use: No Drug/Substance Use Hx: No Substance Use Type: None Hx Substance Use Treatment: No <Marcel Mccarthy - Last Filed: 06/18/17 09:47> - Past Medical History Allergies/Adverse Reactions: Allergies Allergy/AdvReac Type Severity Reaction Status Date / Time amoxicillin [Amoxicillin] Allergy Mild Rash Verified 06/17/17 00:46 mold Allergy Verified 06/17/17 00:46 MSG AdvReac Intermediate Uncoded 06/17/17 00:46 Home Medications: Ambulatory Orders Albuterol Sulfate Inhaler - [Ventolin HFA Inhaler -] 2 inh PO Q4H 12/02/15 Bimatoprost [Lumigan] 1 drop OD HS 12/02/15 Folic Acid 1 mg PO DAILY 12/02/15 Montelukast Na [Singulair -] 10 mg PO HS 12/02/15 Tiotropium [place] [Spiriva] 1 inh IH DAILY 12/02/15 Calcium Carbonate [Calcium] 1,000 mg PO DAILY 09/03/16 Cholecalciferol (Vitamin D3) [Vitamin D3 -] 1,000 unit PO DAILY 09/03/16 Mometasone Furoate 2 sprays NS DAILY 09/03/16 Acetaminophen [Tylenol .Regular Strength -] 650 mg PO Q6H PRN #0 tablet Albuterol 0.083% Nebulizer Cat [Ventolin 0.083% Nebulizer Soln -] 1 amp NEB Q6H PRN #0 amp 09/09/16 Furosemide [Lasix -] 20 mg PO DAILY tablet 09/09/16 Guaifenesin [Robitussin -] 10 ml PO Q6H PRN #0 cup 09/09/16 Pantoprazole Sodium [Protonix -] 40 mg PO DAILY #30 tablet.ec 09/09/16 Apixaban [Eliquis] 5 mg PO BID #90 tablet 11/24/16 Sertraline HCl [Zoloft -] 25 mg PO DAILY #90 tablet 11/24/16 Prednisone [Deltasone -] 5 mg PO DAILY #0 tablet 11/25/16 Review of Systems - Review of Systems Able to Perform ROS?: Yes Comments:: 06/17/17 01:49 GENERAL/CONSTITUTIONAL: No fever or chills. No weakness. HEAD, EYES, EARS, NOSE AND THROAT: No change in vision. No ear pain or discharge. No sore throat. CARDIOVASCULAR: No chest pain or shortness of breath. RESPIRATORY: No cough, wheezing, or hemoptysis. GASTROINTESTINAL: No nausea, vomiting, diarrhea or constipation. GENITOURINARY: No dysuria, frequency, or change in urination. MUSCULOSKELETAL: (+)left elbow pain, right hip pain. No joint swelling or pain. No neck or back pain. SKIN: No rash NEUROLOGIC: No headache, vertigo, loss of consciousness, or change in strength/ sensation. ENDOCRINE: No increased thirst. No abnormal weight change. HEMATOLOGIC/LYMPHATIC: No anemia, easy bleeding, or history of blood clots. ALLERGIC/IMMUNOLOGIC: No hives or skin allergy. <Clarita Ma - Last Filed: 06/17/17 06:40> *Physical Exam - Vital Signs Last Vital Signs Temp Pulse Resp BP Pulse Ox 98.7 F 68 20 107/58 96 06/17/17 00:44 06/17/17 00:44 06/17/17 00:44 06/17/17 00:44 06/17/17 00:44 - Physical Exam Comments: 06/17/17 01:51 GENERAL: Awake, alert, and fully oriented, in no acute distress HEAD: No signs of trauma EYES: PERRLA, EOMI, sclera anicteric, conjunctiva clear ENT: Auricles normal inspection, hearing grossly normal, nares patent, oropharynx clear without exudates. Moist mucosa NECK: Normal ROM, supple, no lymphadenopathy, JVD, or masses LUNGS: Breath sounds equal, clear to auscultation bilaterally. No wheezes, and no crackles HEART: Regular rate and rhythm, normal S1 and S2, no murmurs, rubs or gallops ABDOMEN: Soft, nontender, normoactive bowel sounds. No guarding, no rebound. No masses EXTREMITIES: (+)V-shaped laceration to left elbow, huge hematoma on left arm. Pain with passive motion of right hip. No clubbing. No cords. NEUROLOGICAL: Cranial nerves II through XII grossly intact. SKIN: Warm, Dry, normal turgor. <Elmer Maie - Last Filed: 06/17/17 06:40> ED Treatment Course - LABORATORY CBC & Chemistry Diagram: 06/17/17 01:04 06/17/17 01:04 - ADDITIONAL ORDERS Additional order review: Laboratory Results 06/17/17 01:04 PT with INR 11.60 INR 1.03 06/17/17 01:04 RBC 4.37 MCV 90.3 MCHC 32.9 RDW 13.8 MPV 9.1 Neutrophils % 87.7 H Lymphocytes % 6.7 L Monocytes % 4.2 Eosinophils % 0.9 D Basophils % 0.5 <Clarita Ma - Last Filed: 06/17/17 06:40> - LABORATORY CBC & Chemistry Diagram: 06/17/17 10:22 06/17/17 01:04 <Marcel Mccarthy - Last Filed: 06/18/17 09:47> Medical Decision Making - Medical Decision Making 06/17/17 02:26 Procedure Note: Pt had a V-shaped laceration. 4 of 1% lidocaine was used. 7 sutures were placed. 06/17/17 06:08 Pt is unable to bear weight on right hip or right leg. 06/17/17 06:[address] Pelvis/Hip. Occult hip fracture. <Clarita Ma - Last Filed: 06/17/17 06:40> *DC/Admit/Observation/Transfer - Attestations Scribe Attestion: 06/17/17 01:52 Documentation prepared by Clarita Ma, acting as medical doctor md/medical director for Marcel Mccarthy MD. <Clarita Ma - Last Filed: 06/17/17 06:40> - Attestations Physician Attestion: 06/17/17 00:34 I, Dr. Marcel Mccarthy, attest that this document has been prepared under my direction and personally reviewed by me in its entirety. I further attest, that it accurately reflects all work, treatment, procedures and medical decision -making performed by me. <Marcel Mccarthy - Last Filed: 06/18/17 09:47> Diagnosis at time of Disposition: Intraabdominal hemorrhage Pubic ramus fracture Qualifiers: Encounter type: initial encounter Fracture type: closed Laterality: right Qualified Code(s): S32.591A - Other specified fracture of right pubis, initial encounter for closed fracture - Discharge Dispostion Disposition: TRANSFER ACUTE CARE/OTHER HOSP Condition at time of disposition: Stable
[2017-06-17 00:45] VITALS: BMI 23.6
[2017-06-17 01:16] LABS: BASOPHIL 0.5 % (0-2.0); EOSINOPHIL 0.9 % (0-4.5); MCH 29.7 pg (25.7-33.7); MCHC 32.9 g/dl (32.0-36.0); MEAN CELL VOLUME 90.3 fl (80-96); MEAN PLT VOLUME 9.1 fl (7.5-11.1); NEUTROPHILS 87.7 % (42.8-82.8); PLATELET COUNT 157 K/MM3 (134-434); RDW 13.8 % (11.6-15.6); WHITE BLOOD COUNT 13.6 K/mm3 (4.0-10.0)
[2017-06-17 01:28] LABS: INR 1.03 (0.82-1.09); PROTHROMBIN TIME (PATIENT) 11.6 SEC (9.98-11.88)
[2017-06-17 01:47] LABS: ALK PHOS 87 U/L (45-117); ANION GAP 9 (8-16); BILIRUBIN,TOTAL 0.4 mg/dL (0.2-1.0); CALCIUM 8.3 mg/dL (8.5-10.1); CO2 29 mmol/L (21-32); CREATININE 0.9 mg/dL (0.55-1.02); GLUCOSE,RANDOM 96 mg/dL (74-106); SGOT/AST 22 U/L (15-37); SGPT/ALT 23 U/L (12-78); TOT PROT 5.5 g/dl (6.4-8.2)
[2017-06-17] MEDS ORDERED: ACETAMINOPHEN 650 MG/20.3 ML ORAL SOLUTION (CUPS) PO ONE (03:35)
[2017-06-17] MEDS ORDERED: ACETAMINOPHEN 650 MG/20.3 ML ORAL SOLUTION (CUPS) ONE (03:58)
[2017-06-17 10:30] LABS: BASOPHIL 0.6 % (0-2.0); EOSINOPHIL 0.4 % (0-4.5); MCH 29.1 pg (25.7-33.7); MCHC 32.1 g/dl (32.0-36.0); MEAN CELL VOLUME 90.5 fl (80-96); MEAN PLT VOLUME 8.7 fl (7.5-11.1); NEUTROPHILS 84.2 % (42.8-82.8); PLATELET COUNT 134 K/MM3 (134-434); RDW 13.6 % (11.6-15.6); WHITE BLOOD COUNT 12.6 K/mm3 (4.0-10.0)
--- NOTE | 2017-06-17 10:57 | PDOC ---
*Physical Exam - Vital Signs Last Vital Signs Temp Pulse Resp BP Pulse Ox 98.4 F 79 18 119/65 97 06/17/17 10:22 06/17/17 10:22 06/17/17 10:22 06/17/17 10:22 06/17/17 10:22 <Taisha Polanco - Last Filed: 06/17/17 10:59> - Vital Signs Last Vital Signs Temp Pulse Resp BP Pulse Ox 98.4 F 79 18 119/65 97 06/17/17 10:22 06/17/17 10:22 06/17/17 10:22 06/17/17 10:22 06/17/17 10:22 <Stew Moy - Last Filed: 06/17/17 11:12> ED Treatment Course - LABORATORY CBC & Chemistry Diagram: 06/17/17 10:22 06/17/17 01:04 - ADDITIONAL ORDERS Additional order review: Laboratory Results 06/17/17 06/17/17 06/17/17 01:04 01:04 01:04 PT with INR 11.60 INR 1.03 Sodium 142 Potassium 4.1 D Chloride 104 Carbon Dioxide 29 Anion Gap 9 BUN 23 H D Creatinine 0.9 Creat Clearance w eGFR 58.95 Random Glucose 96 Calcium 8.3 L Total Bilirubin 0.4 AST 22 D ALT 23 D Alkaline Phosphatase 87 Total Protein 5.5 L Albumin 3.0 L Blood Type A POSITIVE Antibody Screen Negative 06/17/17 06/17/17 10:22 01:04 RBC 3.73 4.37 MCV 90.5 90.3 MCHC 32.1 32.9 RDW 13.6 13.8 MPV 8.7 9.1 Neutrophils % 84.2 H 87.7 H Lymphocytes % 9.1 D 6.7 L Monocytes % 5.7 4.2 Eosinophils % 0.4 0.9 D Basophils % 0.6 0.5 - Medications Given in the ED: ED Medications Discontinued Medications Generic Name Dose Route Start Last Admin Trade Name Freq PRN Reason Stop Dose Admin Acetaminophen 650 mg 06/17/17 03:35 06/17/17 04:01 Tylenol Oral Solution - PO 06/17/17 03:36 650 mg ONCE ONE Administration <Taisha Polanco - Last Filed: 06/17/17 10:59> - LABORATORY CBC & Chemistry Diagram: 06/17/17 10:22 06/17/17 01:04 - ADDITIONAL ORDERS Additional order review: Laboratory Results 06/17/17 06/17/17 06/17/17 01:04 01:04 01:04 PT with INR 11.60 INR 1.03 Sodium 142 Potassium 4.1 D Chloride 104 Carbon Dioxide 29 Anion Gap 9 BUN 23 H D Creatinine 0.9 Creat Clearance w eGFR 58.95 Random Glucose 96 Calcium 8.3 L Total Bilirubin 0.4 AST 22 D ALT 23 D Alkaline Phosphatase 87 Total Protein 5.5 L Albumin 3.0 L Blood Type A POSITIVE Antibody Screen Negative 06/17/17 06/17/17 10:22 01:04 RBC 3.73 4.37 MCV 90.5 90.3 MCHC 32.1 32.9 RDW 13.6 13.8 MPV 8.7 9.1 Neutrophils % 84.2 H 87.7 H Lymphocytes % 9.1 D 6.7 L Monocytes % 5.7 4.2 Eosinophils % 0.4 0.9 D Basophils % 0.6 0.5 - Medications Given in the ED: ED Medications Discontinued Medications Generic Name Dose Route Start Last Admin Trade Name Freq PRN Reason Stop Dose Admin Acetaminophen 650 mg 06/17/17 03:35 06/17/17 04:01 Tylenol Oral Solution - PO 06/17/17 03:36 650 mg ONCE ONE Administration <Stew Moy - Last Filed: 06/17/17 11:12> Medical Decision Making - Medical Decision Making 06/17/17 10:57 Called [facility] at 10:31am. Dr. Teague at [facility] called back at 10:48am and spoke with Dr. Moy. He is the accepting physician. Pt will be transferred to Adult ER. <Taisha Polanco - Last Filed: 06/17/17 10:59> - Medical Decision Making 06/17/17 11:09 Sign-out received from outgoing Emergency Physician Dr. Mccarthy Pt interviewed and examined Ancillary studies reviewed Case discussed in detail with oncoming Emergency Physician including history, physical exam and ancillary studies. Elbow xray reviewed. No acute fracture. Pt has had a suture repair by the overnight team. CT scan of pelvis demonstrates a nondisplaced fracture through the right superior and inferior pubic rambi. Also hyperdense material within the pelvis and righ tinguinal region concerning for acute hemorrhage. Pt informs me that she missed couple doses of eliquis several days ago because she ran out. Continues to take baby aspirin. CBC, BMP 06/17/17 10:22 06/17/17 01:04 06/17/17 11:10 Hgb dropped from 13.0 to 10.8 from ~10 hours ago. However, vitals stable. Given the CT findings, the bleed, and the drop in hemoglobin, I had discussed the case with Dr. Cobb regarding that the patient would benefit transfer to a higher level of care to a trauma center. Dr. Cobb agrees with the plan for transfer. The patient has been given the results who agrees with the plan and consents for transfer. Case discussed in detail with trauma surgeon Dr. Teague at [facility] who accepts patient for transfer to [facility] ER. <Stew Moy - Last Filed: 06/17/17 11:12> *DC/Admit/Observation/Transfer <Taisha Polanco - Last Filed: 06/17/17 10:59> - Transfer to Acute Care Facility Receiving Facility: [facility]. Accepting Physician:: Dr. Teague <Stew Moy - Last Filed: 06/17/17 11:12> Diagnosis at time of Disposition: Intraabdominal hemorrhage Fracture of pubic ramus Qualifiers: Encounter type: initial encounter Fracture type: closed Laterality: right Qualified Code(s): S32.591A - Other specified fracture of right pubis, initial encounter for closed fracture; S32.591A - Other specified fracture of right pubis, initial encounter for closed fracture; S32.591A - Other specified fracture of right pubis, initial encounter for closed fracture - Discharge Dispostion Disposition: TRANSFER ACUTE CARE/OTHER HOSP Condition at time of disposition: Stable
[2017-06-17 11:46] VITALS: TEMP 98
[2017-06-17 12:25] VITALS: BP 130/57; PULSE 75
== END 2017-06-17 12:39 | disposition short-term general hospital (02) ==
LOC: JER 23:33
PROC: 0HQEXZZ Repair Left Lower Arm Skin, External Approach (ICD-10-PCS; principal; 2017-06-16)
DX: S32.591A Other specified fracture of right pubis, initial encounter for closed fracture (principal); R58 Hemorrhage, not elsewhere classified; W18.39XA Other fall on same level, initial encounter; Y93.89 Activity, other specified; Y92.018 Other place in single-family (private) house as the place of occurrence of the external cause; J44.9 Chronic obstructive pulmonary disease, unspecified; J45.909 Unspecified asthma, uncomplicated; Z96.643 Presence of artificial hip joint, bilateral
CPT/HCPCS: 36415; 72192-TC; 73070-TC-LT; 73523-TC; 80053; 85025; 85610; 86850; 86900; 86901; 99285-25